=== PATIENT | female | born 1975 | race Caucasian/White ===

== ENCOUNTER 2021-07-28 08:22 | Inpatient (IN) | payer BC, SELFPAY ==
[2021-07-28] VITALS (63 sets, daily range): BP systolic 81–132; BP diastolic 53–94; PULSE 54–134; RESP 18–26; TEMP 36.8–37.4; O2SAT 65–100; BMI 29.4; BMI 28.8
--- NOTE | 2021-07-28 | XR_ITS ---
WS: [id number] Portable AP supine chest, 07/28/2021, 1252 hours Clinical Data: CL PLACEMENT Comparison: Portable chest, today, 1049 hours. Findings: A right subclavian catheter has been inserted and it ends in the superior vena cava. No pne umothorax is seen. The other tubes are in good position and unchanged. There is no change in the pulm onary opacities. XR/XR chest 1V portable [id number] Impression: Satisfactory placement of right subclavian catheter.
--- NOTE | 2021-07-28 08:55 | XR_ITS ---
WS: [id number] Portable AP upright chest, 07/28/2021 Clinical Data: dyspnea/cough Comparison: None. Findings: Diffuse patchy bilateral pulmonary opacities are present. The heart is enlarged. No nodules , masses or effusions are seen. Monitor leads are on the chest wall. XR/XR chest 1V portable [id number] Impression: 1. Diffuse patchy bilateral pulmonary opacities consistent with pneumonia. 2. Cardiomegaly.
--- NOTE | 2021-07-28 09:01 | ED_ITS ---
HPI - COVID General: Chief Complaint: COVID symptoms Stated Complaint: Fever, Cough, SOB Time Seen by Provider: 07/28/21 08:47 Triage information: Has fever, cough or shortness of breath . Exposure to COVID + person last 14 days History of Present Illness: HPI Narrative: 85-year-old female presents emergency room with acute shortness of breath on arrival she is 65% on room air. With nonrebreather she is in the mid 80s with any activity sitting up talking she desats to the low 80s. She states she is tested positive for Covid approximately 1 week ago has been getting progressively worse with nonproductive cough and increasing shortness of breath and some chest pressure. MD complaint: known COVID positive Prior covid testing: yes, results known (Per patient she tested positive at [facility]) Prior testing date: 07/21/21 COVID 19 common symptoms: positive fever(s), chills, cough, non-productive cough, dyspnea, fatigue, body aches, throat pain, nasal congestion, nausea and diarrhea COVID 19 other sytmptoms: positive requiring oxygen; negative chest pain Onset (ago): day(s) (8) Severity: severe Pertinent comorbid conditions: obesity Treatment prior to arrival: none COVID Results: No Data to Display Review of Systems Const: Reports: fever(s), chills, body aches and fatigue ENMT: Reports: throat pain and nasal congestion Card: Denies: chest pain, edema, dyspnea on exertion or orthopnea Resp: Reports: dyspnea and non-productive cough GI: Reports: nausea and diarrhea : Denies: flank pain, difficulty voiding, dysuria, urinary frequency or urinary urgency Skin/Breast: Denies: rash or pruritus PFSH ED PFSH: Medical History (Updated 07/28/21 @ 11:18 by Duglas Tabor MD) Hyperlipidemia Surgical History (Updated 07/28/21 @ 11:03 by Duglas Tabor MD) History of tubal ligation Family History (Updated 07/28/21 @ 11:04 by Duglas Tabor MD) Other CAD (coronary artery disease) Cancer Stroke Social History (Updated 07/28/21 @ 11:04 by Duglas Tabor MD) Smoking and tobacco status: never smoked Alcohol intake: current Alcohol intake frequency: few times a month Female Reproductive History: Date of last menstrual period: 07/28/21 Physical Exam Const: GENERAL APPEARANCE: cooperative ORIENTATION/CONSCIOUSNESS: Yes awake, Yes oriented to person, Yes oriented to place and Yes oriented to time HENMT: COMMON NORMALS: normocephalic, atraumatic and hearing grossly normal bilaterally HEAD & SCALP: normocephalic and atraumatic Resp: AUSCULTATION: wheezes Cardio: COMMON NORMALS: regular rhythm and No murmurs present (Cardio) RATE: tachycardic RHYTHM: regular rhythm GI: COMMON NORMALS: Soft to palpation and No hepatosplenomegaly present AUSCULTATION: Yes normoactive bowel sounds PALPATION: Yes Soft to palpation, No Tenderness to palpation present (GI), No Guarding due to palpation present (GI) and Yes No hepatosplenomegaly present Extremity: COMMON NORMALS: normal to inspection, no calf tenderness and no pedal edema Neuro: SENSORIUM/ORIENTATION: Yes oriented to person, Yes oriented to place and Yes oriented to time Skin: COMMON NORMALS: no rashes or lesions noted GENERAL SKIN EXAM: no rashes or lesions noted Procedures Central Line Placement Right SC: Time Out Performed: Yes Patient Placed on Monitor/Pulse Ox: Yes MD Prep: mask, gown and gloves Central Line Prep: Chlorhexidine scrub Local Anesthetic: lidocaine 1% Amount of anesthesia used (mL): 5 Ultrasound Used for Placement: Yes Central Line Lumen Inserted: triple Post Procedure: sutured in place, good blood return, all ports aspirated, flushed, capped and sterile dressing applied Post Procedure X-Ray: tip of catheter in good position and no pneumothorax seen Patient Tolerated Procedure: well Complications: catheter malposition Additional Comments: First attempt at the right subclavian no difficulty placing the catheter however on x-ray it was malposition were bridged across to the left subclavian. Catheter was retracted rotated and then advanced on the first attempt it went to the IJ on the second attempt under similar adjustments it went back across to the left subclavian. After several more attempts it was not able to advance adequately but still could withdraw blood. Large amount of the catheter was out and could not get the catheter positioned into the superior vena cava. The catheter was removed a second kit was obtained and the right subclavian was reaccessed assessed proximally 2 to 3 cm more medially. Was able to advance the catheter without difficulty on first x-ray the catheter is into the inferior vena cava it was withdrawn some and confirmed to be at the tip of the right atrium. It was then sutured into place using the available lock. A portion of the triple-lumen catheter remained extra dermal in order to keep the tip positioned properly. Was sutured into place without further difficulty all 3 ports would draw and flush without difficulty. Intubation Time out performed: Yes sedative: Etomidate Mg Given: 20 paralytic: Succinylcholine Mg Given: 90 ET Tube Size: 8.5 ET Tube Uncuffed: No Tube Secured Depth (cm): 24 Tube Secured Location: teeth Tube Placement Confirmation: visualized tube passing through cords, equal breath sounds bilaterally, no breath sounds over epigastrium and confirmation by capnometry Patient Tolerated Procedure: well Intubation Complications: none Additional Comments: Tube retracted 2 cm after chest x-ray which showed the tip right at the tia Course Vital Signs: Vital signs: Vital Signs Temperature 99.4 F 07/28/21 08:40 Pulse Rate 88 07/28/21 13:00 Respiratory Rate 20 H 07/28/21 13:00 Blood Pressure 93/61 07/28/21 13:00 Pulse Oximetry 95 07/28/21 13:00 MDM - COVID Lab Data: Labs: Lab Results 07/28/21 07/28/21 07/28/21 Range/Units 08:40 08:40 08:40 WBC 8.6 (4.0-10.0) 10^3/ uL RBC 4.49 (4.1-5.3) 10^6/u L Hgb 13.4 (11.5-15.3) g/dL Hct 41.3 (37.0-47.0) % MCV 92.0 (81-99) fl MCH 29.8 (28.0-34.0) pg MCHC 32.4 (30.0-36.0) g/dL RDW 14.4 (12.1-15.1) % Plt Count 405 H (130-400) 10^3/c mm MPV 11.2 H (7.4-10.4) fL Neut % (Auto) 87.1 % Lymph % (Auto) 6.9 % [facility] % (Auto) 4.1 % Eos % (Auto) 0.2 % Baso % (Auto) 0.1 % Neut # (Auto) 7.48 (1.8-7.7) 10^3/u L Lymph # (Auto) 0.6 L (0.8-4.8) 10^3/u L [facility] # (Auto) 0.4 (0.2-0.9) 10^3/u L Eos # (Auto) 0.0 (0.0-0.8) 10^3/u L Baso # (Auto) 0.0 (0.0-0.1) 10^3/u L Nucleated RBC % (a uto) 0 % Nucleated RBCs # 0.0 /100WBC D-Dimer 3.17 H (0-0.59) ug/mIFE U Specimen Type Sample Site ABG pH (7.35-7.45) ABG pCO2 (35-45) mmHg ABG pO2 (80.0-100.0) mmH g ABG HCO3 (22-26) mmol/L ABG Base Excess (-2.0-2.0) mmol/ L Akira Test Hematocrit (37-47) % O2 Delivery Device O2 Liters/Min % FiO2 % Machine Maintenance Repairer ID Sodium 138 (136-145) mmol/L Potassium 3.2 L (3.5-5.1) mmol/L Chloride 98 (98-107) mmol/L Carbon Dioxide 27 (22-29) mmol/L Anion Gap 16.2 (5-19) BUN 11 (6-20) mg/dL Creatinine 0.6 (0.5-0.9) mg/dL GFR Calculation 107.2 (90-130) mL/min Glucose 98 (65-115) mg/dL Calculated Osmolal ity 285 (285-295) mOsm/k g Lactic Acid (0.5-2.2) mmol/L Calcium 8.2 L (8.5-10.5) mg/dL Magnesium (1.7-2.3) mg/dL Total Bilirubin 0.8 (0.15-1.2) mg/dL AST 99 H (0-32) U/L ALT 201 H (0-33) U/L Alkaline Phosphata se 189 H (35-105) IU/L Creatine Kinase (26-192) U/L C-Reactive Protein 121.3 H (0.0-4.9) mg/L Total Protein 7.0 (6.6-8.7) g/dL Albumin 3.6 (3.5-5.2) g/dL Globulin 3.4 (1.3-4.6) g/dL Procalcitonin 0.10 (0-0.5) ng/mL 07/28/21 07/28/21 07/28/21 Range/Units 08:40 08:40 08:40 WBC (4.0-10.0) 10^3/ uL RBC (4.1-5.3) 10^6/u L Hgb (11.5-15.3) g/dL Hct (37.0-47.0) % MCV (81-99) fl MCH (28.0-34.0) pg MCHC (30.0-36.0) g/dL RDW (12.1-15.1) % Plt Count (130-400) 10^3/c mm MPV (7.4-10.4) fL Neut % (Auto) % Lymph % (Auto) % [facility] % (Auto) % Eos % (Auto) % Baso % (Auto) % Neut # (Auto) (1.8-7.7) 10^3/u L Lymph # (Auto) (0.8-4.8) 10^3/u L [facility] # (Auto) (0.2-0.9) 10^3/u L Eos # (Auto) (0.0-0.8) 10^3/u L Baso # (Auto) (0.0-0.1) 10^3/u L Nucleated RBC % (a uto) % Nucleated RBCs # /100WBC D-Dimer (0-0.59) ug/mIFE U Specimen Type Sample Site ABG pH (7.35-7.45) ABG pCO2 (35-45) mmHg ABG pO2 (80.0-100.0) mmH g ABG HCO3 (22-26) mmol/L ABG Base Excess (-2.0-2.0) mmol/ L Akira Test Hematocrit (37-47) % O2 Delivery Device O2 Liters/Min % FiO2 % Machine Maintenance Repairer ID Sodium (136-145) mmol/L Potassium (3.5-5.1) mmol/L Chloride (98-107) mmol/L Carbon Dioxide (22-29) mmol/L Anion Gap (5-19) BUN (6-20) mg/dL Creatinine (0.5-0.9) mg/dL GFR Calculation (90-130) mL/min Glucose (65-115) mg/dL Calculated Osmolal ity (285-295) mOsm/k g Lactic Acid 2.5 H (0.5-2.2) mmol/L Calcium (8.5-10.5) mg/dL Magnesium 2.2 (1.7-2.3) mg/dL Total Bilirubin (0.15-1.2) mg/dL AST (0-32) U/L ALT (0-33) U/L Alkaline Phosphata se (35-105) IU/L Creatine Kinase 27 (26-192) U/L C-Reactive Protein (0.0-4.9) mg/L Total Protein (6.6-8.7) g/dL Albumin (3.5-5.2) g/dL Globulin (1.3-4.6) g/dL Procalcitonin (0-0.5) ng/mL 07/28/21 Range/Units 08:56 WBC (4.0-10.0) 10^3/ uL RBC (4.1-5.3) 10^6/u L Hgb (11.5-15.3) g/dL Hct (37.0-47.0) % MCV (81-99) fl MCH (28.0-34.0) pg MCHC (30.0-36.0) g/dL RDW (12.1-15.1) % Plt Count (130-400) 10^3/c mm MPV (7.4-10.4) fL Neut % (Auto) % Lymph % (Auto) % [facility] % (Auto) % Eos % (Auto) % Baso % (Auto) % Neut # (Auto) (1.8-7.7) 10^3/u L Lymph # (Auto) (0.8-4.8) 10^3/u L [facility] # (Auto) (0.2-0.9) 10^3/u L Eos # (Auto) (0.0-0.8) 10^3/u L Baso # (Auto) (0.0-0.1) 10^3/u L Nucleated RBC % (a uto) % Nucleated RBCs # /100WBC D-Dimer (0-0.59) ug/mIFE U Specimen Type Arterial Sample Site Radial, left ABG pH 7.52 H (7.35-7.45) ABG pCO2 33.6 L (35-45) mmHg ABG pO2 49.8 L (80.0-100.0) mmH g ABG HCO3 27.2 H (22-26) mmol/L ABG Base Excess 4.5 H (-2.0-2.0) mmol/ L Akira Test Pos Hematocrit 41.1 (37-47) % O2 Delivery Device Nrb O2 Liters/Min 15.0 % FiO2 100.0 % Machine Maintenance Repairer ID Ed Sodium (136-145) mmol/L Potassium (3.5-5.1) mmol/L Chloride (98-107) mmol/L Carbon Dioxide (22-29) mmol/L Anion Gap (5-19) BUN (6-20) mg/dL Creatinine (0.5-0.9) mg/dL GFR Calculation (90-130) mL/min Glucose (65-115) mg/dL Calculated Osmolal ity (285-295) mOsm/k g Lactic Acid (0.5-2.2) mmol/L Calcium (8.5-10.5) mg/dL Magnesium (1.7-2.3) mg/dL Total Bilirubin (0.15-1.2) mg/dL AST (0-32) U/L ALT (0-33) U/L Alkaline Phosphata se (35-105) IU/L Creatine Kinase (26-192) U/L C-Reactive Protein (0.0-4.9) mg/L Total Protein (6.6-8.7) g/dL Albumin (3.5-5.2) g/dL Globulin (1.3-4.6) g/dL Procalcitonin (0-0.5) ng/mL COVID Results: No Data to Display Discharge Plan Discharge Admit Provider: Duglas Tabor Coding Level of Care Code ED [employer] for [facility] Fwd Exam Detailed
[2021-07-28 09:06] LABS: ABG PCO2 33.6 mmHg (35-45); ABG PH Result 7.52 (7.35-7.45); Arterial Blood Gas Hematocrit 41.1 % (37-47); Base Excess ABG 4.5 mmol/L (-2.0-2.0); Blood Gas Allen Test Pos; Blood Gas Sample Type Arterial; HCO3 ABG 27.2 mmol/L (22-26); PO2 ABG 49.8 mmHg (80.0-100.0)
[2021-07-28 09:07] LABS: Blood Gas Operator Identificat ED; Blood Gas Sample Site Radial, left; Oxygen Device NRB
[2021-07-28 09:25] LABS: Basophils % 0.1 %; Eosinophils % 0.2 %; Hematocrit 41.3 % (37.0-47.0); Hemoglobin 13.4 g/dL (11.5-15.3); Lymphocytes # 0.6 10^3/uL (0.8-4.8); Lymphocytes % 6.9 %; Mean Corpuscular HGB Conc 32.4 g/dL (30.0-36.0); Mean Corpuscular Hemoglobin 29.8 pg (28.0-34.0); Mean Platelet Volume 11.2 fL (7.4-10.4); Monocytes # 0.4 10^3/uL (0.2-0.9); Monocytes % 4.1 %; Neutrophils # 7.48 10^3/uL (1.8-7.7); Neutrophils % 87.1 %; Nucleated Red Blood Cells % 0 %; Platelet Count 405 10^3/cmm (130-400); Red Blood Count 4.49 10^6/uL (4.1-5.3); Red Cell Distribution Width 14.4 % (12.1-15.1); White Blood Count 8.6 10^3/uL (4.0-10.0)
[2021-07-28 09:29] LABS: D Dimer 3.17 ug/mIFEU (0-0.59); Lactic Sepsis W/Reflex 2.5 mmol/L (0.5-2.2)
--- NOTE | 2021-07-28 09:31 | PC.PHAR ---
pt states she takes care of her own medications-pt states she dced her meds in dec 2020- ext med history shows fluvoxamine 100mg take 50mg bid,levothyroxine 75mcg po daily,hctz 25mg daily,vitamin d 50,000 units q7d,and lipitor 20mg daily last filled from 12/07/20-11/28/20 30d/s-pt states she finished the zpac and dexamethasone on 07/27/21
[2021-07-28] MEDS: dexamethasone 10 mg/mL INJ 6 MG IVP (09:33)
[2021-07-28] MEDS: remdesivir 200 MG in sodium chloride 0.9% (100 ml) 60 ML 100 MG IV (09:34)
[2021-07-28 09:48] LABS: Albumin Level 3.6 g/dL (3.5-5.2); Anion Gap 16.2 (5-19); Blood Urea Nitrogen 11 mg/dL (6-20); Carbon Dioxide 27 mmol/L (22-29); Chloride 98 mmol/L (98-107); Globulin 3.4 g/dL (1.3-4.6); Glomerular Filtration Rate 107.2 mL/min (90-130); Glucose 98 mg/dL (65-115); Osmolality Calculated 285 mOsm/kg (285-295); Sodium 138 mmol/L (136-145); Total Bilirubin 0.8 mg/dL (0.15-1.2)
[2021-07-28 10:01] LABS: Alanine Aminotransferase 201 U/L (0-33); Aspartate Amino Transferase 99 U/L (0-32); C Reactive Protein 121.3 mg/L (0.0-4.9); Calcium 8.2 mg/dL (8.5-10.5); Potassium 3.2 mmol/L (3.5-5.1)
[2021-07-28 10:02] LABS: Alkaline Phosphatase 189 IU/L (35-105)
--- NOTE | 2021-07-28 10:23 | CT_ITS ---
WS: [id number] CTA OF THE CHEST WITH PULMONARY EMBOLISM PROTOCOL TECHNIQUE: High-resolution contrast enhanced CTA of the chest with coronal and sagittal reformatted i mages with pulmonary embolism protocol. MIP images are also reviewed. CLINICAL INFORMATION: covid COMPARISON: None. DLP: 529.[address] scans at [facility] use at least one of these dose optimization techniques: automated e xposure control; mA and/or kV adjustment per patient size (includes targeted exams where dose is matc hed to clinical indication); or iterative reconstruction. FINDINGS: Proximal main pulmonary arteries are normal. Normal segmental and subsegmental pulmonary arteries. No filling defects to indicate pulmonary embolus. Endotracheal tube with tip above the tia. Enteric tube with tip in the stomach. Postoperative bilateral breast implants. Tiny pericardial effusion/pericardial thickening. Diffuse bilateral hazy groundglass pulmonary infilt rates compatible with COVID 19 pneumonia. Partial consolidation in the posterior lungs. Normal calibe r thoracic aorta. Adrenal glands are normal. CT/CT angio chest PE protcl [id number] IMPRESSION: 1. Proximal main pulmonary arteries are normal. No evidence of pulmonary embol us. 2. Diffuse bilateral hazy groundglass infiltrates compatible with COVID 19 pne umonia. Partial consolidation in the lungs posteriorly. 3. Reactive mediastinal, hilar and peribronchial lymph nodes. 4. Tiny pericardial effusion/pericardial thickening. 5. Endotracheal tube with tip above the tia. Enteric tube with tip in the s tomach.
[2021-07-28] MEDS: succinylcholine 20 mg/mL SDV 10mL 90 MG IVP (10:32)
--- NOTE | 2021-07-28 10:41 | XR_ITS ---
WS: [id number] Portable AP supine chest, 07/28/2021, 1049 hours. Clinical Data: dyspnea/cough Comparison: Portable chest, 07/28/2021, 0857 hours. Findings: An endotracheal tube and nasogastric tube have been inserted and they are in good position. The bilat eral pulmonary opacities remain the same. The heart is enlarged. No pneumothorax is noted. Monitor le ads on the chest wall XR/XR chest 1V portable [id number] Impression: Satisfactory insertion of endotracheal tube and nasogastric tube.
[2021-07-28] MEDS: vecuronium 10 mg SDV IVP (10:42)
--- NOTE | 2021-07-28 10:48 | P.HP_ITS ---
Providers/Chief Complaint Admitting Physician: Duglas Tabor MD Chief Complaint: Fever, Cough, SOB History of Present Illness Zulma Rodriguez is a 45 year old female who presented to the hospital with history of severe shortness of breath. She reports she had a positive Covid test at [place] on July 21. Please see history obtained by the ER physician. Patient was being intubated as I saw her and further history could not be obtained. It appears she was on dexamethasone, and a azithromycin prior to coming to the hospital. From my understanding she has had fever and chills as well. Review of Systems General: Reports: ROS unobtainable due to mental status (Intubated, sedated) Medications/Allergies Home Medications Medication Instructions Recorded Confirmed Last Taken Type Vitamin C 1 tab PO DAILY 07/28/21 07/28/21 Unknown History acetaminophen [Tylenol Extra 1,000 mg PO Q4H PRN 07/28/21 07/28/21 Unknown History Strength] azithromycin See Rx Instructions .ROUTE .COMPLEX 07/28/21 07/28/21 07/27/21 History finished 07/27/21 dexamethasone 6 mg PO DAILY 07/28/21 07/28/21 07/27/21 History finished 07/27/21 zinc 1 cap PO DAILY 07/28/21 07/28/21 Unknown History Allergies Allergy/AdvReac Type Severity Reaction Status Date / Time ampicillin Allergy Unknown Verified 07/28/21 09:28 morphine Allergy Unknown Verified 07/28/21 09:27 Penicillins Allergy Unknown Verified 07/28/21 09:27 Sulfa (Sulfonamide Allergy Unknown Verified 07/28/21 09:27 Antibiotics) PFSH Acute PFSH: Medical History (Updated 07/28/21 @ 11:18 by Duglas Tabor MD) Hyperlipidemia Surgical History (Updated 07/28/21 @ 11:03 by Duglas Tabor MD) History of tubal ligation Family History (Updated 07/28/21 @ 11:04 by Duglas Tabor MD) Other CAD (coronary artery disease) Cancer Stroke Social History (Updated 07/28/21 @ 11:04 by Duglas Tabor MD) Smoking and tobacco status: never smoked Alcohol intake: current Alcohol intake frequency: few times a month Female Reproductive History: Date of last menstrual period: 07/28/21 Supplemental PFSH Information: History of breast augmentation, tummy tuck Vitals/I&O/Wt Last Vital Signs Temp 99.4 F 07/28/21 08:40 Pulse 122 H 07/28/21 10:25 Resp 22 H 07/28/21 10:25 BP 115/85 07/28/21 10:25 Pulse Ox 91 07/28/21 10:25 Weight last 48 hrs Weight 80.286 kg Physical Exam Narrative: EXAM NARRATIVE: General exam is an intubated female, sedated HEENT: Pupils round. Endotracheal tube and nasogastric tube noted. Neck supple no lymphadenopathy or thyromegaly Cardiovascular tachycardic Lungs coarse breath sounds bilaterally Abdomen is soft, positive bowel sounds. No obvious organomegaly exam demonstrates [place] Extremities no cyanosis clubbing or edema Skin no rash Neurologic: Sedated Data : 07/28/21 08:40 07/28/21 08:40 Other data: Dimer elevated at 3.17 ABG demonstrates a pH of 7.5, PCO2 of 34, PO2 of 50 on 100% FiO2 by n onrebreather Lactic acid elevated at 2.5 AST elevated 99, ALT 201, bilirubin normal, alk phos 189, CRP 121, procalcitonin 0.1 Chest x-ray bilateral infiltrates consistent with Covid CTA has been ordered. A&P Assessment and plan (1) Acute respiratory failure: Intubated in the emergency department secondary to failure to improve on high flow oxygen. I believe BiPAP was tried as well. Currently mechanical ventilation with 8 of PEEP, FiO2 of 100%, tidal volume of 450. Patient saturation is currently 94% and vital signs stable. Sedation with propofol, fentanyl, Versed If oxygenation worsens, consider paralyzation and proning Wean ventilator as tolerated Pulmonary critical care consultation Respiratory failure appears to be secondary to COVID-19 pneumonia without concomitant bacterial illness. Procalcitonin is negative at this time. Secondary to elevated dimer, CTA is pending and these findings will be addressed as well. Status: Acute (2) Pneumonia due to COVID-19 virus: Initiate remdesivir Continue dexamethasone Consideration of Actemra if no evidence of bacterial infection. Will await CTA prior to ordering Pulmonary toilet See above notation under acute respiratory failure. If any hypotension develops initiate norepinephrine Try to avoid overhydration Status: Acute (3) Hypokalemia: Supplement with IV potassium Check magnesium Status: Acute (4) Elevated d-dimer: Await CTA of chest already ordered Status: Acute (5) Transaminitis: Likely secondary to Covid Check CK No further imaging regarding this at this time unless it worsens significantly. Status: Acute Additional A&P Information History of hyperlipidemia Full code Lovenox for DVT prophylaxis Attestations Medical Necessity Statement*: Will need greater than 2 midnight stay secondary to severe COVID-19 pneumonia requiring mechanical ventilation. Critical Care Time: Critical Care Time (min): 58 Other Attestations: The high probability of a clinically significant, sudden or life threatening deterioration of the patient's [pulmonary] system(s) required my full and direct attention, intervention and personal management. The critical care time is as shown. This time is in addition to time spent performing any reported procedures but includes the following: [x] Data and vital sign review and interpretation [x] Patient assessment, examination and intervention [x] Documentation [x] Medication orders and management Coding Level of Care Code Acute Maintenance Mechanic for [facility] Fwd Diagnoses Acute respiratory failure J96.00 Pneumonia due to COVID-19 virus U07.1; J12.82 Hypokalemia E87.6 Elevated d-dimer R79.89 Transaminitis R74.01
--- NOTE | 2021-07-28 10:51 | PC.NURSE ---
Intubation note: time out completed with ER physician, hospitalist physician, RT, and RN *2. Pt given appropriate medications, and intubated at 1034. Pt intubated with ETT 24cm at the teeth. Pt tolerated procedure well.
[2021-07-28 10:57] LABS: Reflex Lactate Order REFLEX LACTIC ORDERD
--- NOTE | 2021-07-28 11:06 | ECG_ITS ---
[facility] Test Date: 2021-07-28 Pat Name: Zulma Rodriguez Department: Room: ICU12 Gender: Female Marketing Operations Intern: : 1975 Requested By: Duglas Mohan Order Number: [id number] Dennise MD: Sylvester Hinds M.D. Measurements Intervals [place] Rate: 119 P: 45 NE: 145 QRS: 10 QRSD: 79 T: 58 QT: 339 QTc: 478 Interpretive Statements SINUS TACHYCARDIA POSSIBLE LEFT ATRIAL ENLARGEMENT [-0.1mV P-WAVE IN V1/V2] NONSPECIFIC ST & T-WAVE ABNORMALITY ABNORMAL RHYTHM ECG No previous ECG available for comparison Electronically Signed On 07-28-2021 20:38:25 CDT by Sylvester Hinds M.D. [id number]
[2021-07-28] MEDS: propofol 1,000 MG/100 ML INJ 2.41 MG IV (11:26)
[2021-07-28 11:27] LABS: Magnesium 2.2 mg/dL (1.7-2.3)
[2021-07-28 11:44] LABS: Creatine Phosphokinase 27 U/L (26-192)
[2021-07-28 11:59] LABS: Bilirubin Urine 1+ (Negative); Blood Urine Neg (Negative); Glucose Urine UA Norm (Normal); Ketones Urine Negative (Negative); Leukocyte Esterase Urine Negative (Negative); Nitrate Urine Negative (Negative); Protein Urine 1+ (Negative); Urine Appearance SL Hazy (CLEAR); Urine Color Amber (Yellow); Urobilinogen Urine 4 mg/dL (Negative); pH Urine 6.5 (5-7)
[2021-07-28 12:00] LABS: Add Urine Culture? No; Bacteria Urine 1+ /hpf; Mucus Urine 2+ /hpf; Squamous Epithelial Cell Urine 0-4 /hpf (0-5); Transitional Epi Cells Urine 0-4 /hpf
[2021-07-28] MEDS: sodium chloride 0.9% 1,000 ML 999 ML IV (12:35)
[2021-07-28] MEDS: iohexol 350 mg/mL 100 mL Btl IV (14:07)
--- NOTE | 2021-07-28 14:41 | PC.NURSE ---
applied soft restrains to upper extremities at 1230 per MD v/o, patient tolerated well.
[2021-07-28] MEDS: ipratropium-albuterol 3 mL Neb INHALATION ×2 (15:30→20:10)
[2021-07-28] MEDS: lidocaine 1% 5 ML in potassium chloride premix 100 ML 25 ML IV (15:46)
[2021-07-28 15:47] LABS: ABG PH Result 7.51 (7.35-7.45); Arterial Blood Gas Hematocrit 36.5 % (37-47); Base Excess ABG 3.2 mmol/L (-2.0-2.0); Blood Gas Allen Test Pos; Blood Gas Sample Type Arterial; PO2 ABG 65.8 mmHg (80.0-100.0)
[2021-07-28] MEDS: enoxaparin 40 mg/0.4 mL Syringe SUBCUT (15:47)
[2021-07-28] MEDS: famotidine 20 mg/2 mL INJ IVP (15:47)
[2021-07-28 15:48] LABS: Blood Gas Operator Identificat ED; Blood Gas Sample Site Radial, right; Blood Gas Tidal Volume 0.45; Oxygen Device VENT
[2021-07-28] MEDS: propofol 1,000 MG/100 ML INJ 14.45 MG IV (16:02)
[2021-07-28] MEDS: cisatracurium 100 MG in sodium chloride 0.9% 50 ML IV (16:29)
[2021-07-28] MEDS: levofloxacin-dextrose 5 % 750 MG/150 ML PREMIX 100 MG IV (18:35)
--- NOTE | 2021-07-28 19:03 | PM.ACPR ---
Procedure/Consent Consent: Consent for Procedure: Emergency procedure Procedure Narrative: Name of the procedure: Right radial ultrasound-guided arterial catheter placement. Medications: Fentanyl, Versed and propofol drip. Description of the procedure: The site was prepared using sterile technique. The right radial artery was identified under ultrasound guidance from pulsatility. Under ultrasound guidance the introducer needle was advanced till flash back was noted. Using Seldinger technique the left radial arterial line was inserted. The catheter was secured with 2-0 silk suture and Tegaderm. Complications: None.
--- NOTE | 2021-07-28 19:05 | PM.CONSULT ---
Providers/Reason For Consult Consulting Physician/Specialty*: Pulmonary and critical care medicine Reason for Consult*: Severe COVID-19 Attending Physician: Duglas Tabor MD History of Present Illness History of Present Illness Zulma Rodriguez is a 45 year old female with severe shortness of breath and hypoxia. The history was obtained from chart review. It appears that the patient had tested positive for COVID-19 on July 21 in [place]. She was receiving dexamethasone as outpatient. In the emergency department today the patient was saturating 65% on room air. With nonrebreather she was saturating in low 80s. Eventually the patient got intubated. I evaluated the patient in the ICU. The patient was intubated and sedated. She was on 80% oxygen with a PEEP of 8 and a tidal volume of 450 cc. Her arterial blood gas revealed a pH of 7.51, PCO2 of 33 and PO2 of 66 on 80% oxygen. CT angiogram was negative for pulmonary embolism. The patient has diffuse bilateral groundglass opacity with peripheral predominance. No significant pleural effusion. Bedside ultrasound revealed bilateral diffuse B-lines. The IVC is within normal size. The patient has elevated inflammatory markers. Review of Systems Narrative: Unable to obtain Meds/Allergies Home Medications and Allergies Home Medications Medication Instructions Recorded Confirmed Last Taken Type Vitamin C 1 tab PO DAILY 07/28/21 07/28/21 Unknown History acetaminophen [Tylenol Extra 1,000 mg PO Q4H PRN 07/28/21 07/28/21 Unknown History Strength] azithromycin See Rx Instructions .ROUTE .COMPLEX 07/28/21 07/28/21 07/27/21 History finished 07/27/21 dexamethasone 6 mg PO DAILY 07/28/21 07/28/21 07/27/21 History finished 07/27/21 zinc 1 cap PO DAILY 07/28/21 07/28/21 Unknown History Allergies Allergy/AdvReac Type Severity Reaction Status Date / Time ampicillin Allergy Unknown Verified 07/28/21 09:28 morphine Allergy Unknown Verified 07/28/21 09:27 Penicillins Allergy Unknown Verified 07/28/21 09:27 Sulfa (Sulfonamide Allergy Unknown Verified 07/28/21 09:27 Antibiotics) Current Medications Current Medications Generic Name Dose Route Start Last Admin Trade Name Freq PRN Reason Stop Dose Admin Albuterol/Ipratropium 3 ml 07/28/21 14:39 07/28/21 15:30 Ipratropium-Albuterol 3 Ml Neb INHALATION 3 ml Q6H CANDI Administration Enoxaparin Sodium 40 mg 07/28/21 14:39 07/28/21 15:47 Enoxaparin 40 Mg/0.4 Ml Syringe SUBCUT 40 mg Q24H CANDI Administration Famotidine 20 mg 07/28/21 14:39 07/28/21 15:47 Famotidine 20 Mg/2 Ml Inj IVP 20 mg Q12H CANDI Administration Propofol 1,000 mg in 100 mls @ 0 mls/hr 07/28/21 11:00 07/28/21 16:54 Diprivan IV 50 mcg/kg/min .Q0M CANDI 24.09 mls/hr Titration Protocol Per Protocol Norepinephrine Bitartrate 4 mg 254 mls @ 0 mls/hr 07/28/21 14:39 07/28/21 16:50 / Dextrose IV 4 mcg/min .Q0M CANDI 15.24 mls/hr Titration Protocol Per Protocol Cisatracurium Besylate 100 mg/ 100 mls @ 0 mls/hr 07/28/21 16:00 07/28/21 16:29 Sodium Chloride IV 0.3 mcg/kg/min .Q0M CANDI 1.41 mls/hr Administration Protocol Per Protocol Levofloxacin/Dextrose 750 mg in 150 mls @ 100 mls/hr 07/28/21 18:00 07/28/21 18:35 Levaquin-D5w IV 100 mls/hr Q24H CANDI Administration Protocol PFSH Acute PFSH: Medical History Hyperlipidemia Surgical History History of tubal ligation Family History Other CAD (coronary artery disease) Cancer Stroke Social History Smoking and tobacco status: never smoked Alcohol intake: current Alcohol intake frequency: few times a month Female Reproductive History: Date of last menstrual period: 07/28/21 Vitals/I&O/Wt Last Vital Signs Temp 98.2 F 07/28/21 14:30 Pulse 64 07/28/21 18:15 Resp 20 H 07/28/21 18:15 BP 114/78 07/28/21 18:15 Pulse Ox 95 07/28/21 18:15 07/28/21 07/28/21 07/28/21 06:59 14:59 22:59 Intake Total 30.983 / 30.983 71.015 / 101.998 Output Total 300 / 300 Balance 30.983 / 30.983 -228.985 / -198.002 Weight last 48 hrs Weight 173 lb Weight 177 lb Physical Exam Narrative: EXAM NARRATIVE: General: The patient is intubated and sedated Neck: No JVD Respiratory: Auscultation: Coarse breath sound bilaterally, no wheezing or rhonchi Cardiovascular: Regular rate and rhythm, S1-S2 present, no murmur, no peripheral edema. Abdomen: Soft, nondistended, positive bowel sound Skin: No rash Neuro: The patient is sedated Urinary Catheter Management^: Alcantara: Cath Placed During This Visit: yes Reason for Continuing Indwelling Catheter: Accurate Measurement of Urinary Output in Critically Ill Patients Urinary Catheter Time of Insertion: 11:12 Data Micro: Micro: Microbiology 07/28/21 10:54 Gram Stain - Final Sputum - Endotrac heal Tube Aspirate 07/28/21 13:00 Blood Culture - Pr eliminary Blood SPECIMEN COLLEC HUSSAIN Other Data: Attestation for Other Data: I personally reviewed and interpreted the following: Other data: I have reviewed the patient's laboratory for microbiology cardiology data. Please see the HPI for detail A&P Assessment and plan (1) ARDS (adult respiratory distress syndrome): This is a 45-year-old lady with ARDS secondary to SARS-CoV-2 pneumonia. Her PF ratio is about 80. Currently she is on 80% oxygen. The patient will be a candidate for prone positioning. We will continue with low tidal volume ventilation. She will be paralyzed and proned for 18 hours. Status: Acute (2) Pneumonia due to COVID-19 virus: The patient is receiving remdesivir, dexamethasone. She is a candidate for Tocilizumab. We will give her empiric Levaquin for the time being. Status: Acute Coding Level of Care Code Acute Marketing Support Assistant for [facility] Diagnoses ARDS (adult respiratory distress syndrome) J80 Pneumonia due to COVID-19 virus U07.1; J12.82 Time Spent (min) 37
[2021-07-28] MEDS: propofol 1,000 MG/100 ML INJ 24.09 MG IV ×2 (19:59→23:55)
[2021-07-29] VITALS (63 sets, daily range): BP systolic 88–126; BP diastolic 53–93; PULSE 53–116; RESP 20–23; TEMP 25.5–36.6; O2SAT 89–99
--- NOTE | 2021-07-29 01:46 | PC.NURSE ---
Addendum entered by Jean Fernandez RN 07/29/21 05:38: At beginning of shift found Fentanyl running at 200 versed running at 6 Original Note: Dr. Mead approved increasing max of Fentanyl to 200 and Versed to 6
[2021-07-29] MEDS: famotidine 20 mg/2 mL INJ IVP ×2 (02:00→15:57)
[2021-07-29] MEDS: ipratropium-albuterol 3 mL Neb INHALATION ×4 (02:57→20:20)
[2021-07-29 03:44] LABS: ABG PCO2 28.9 mmHg (35-45); ABG PH Result 7.45 (7.35-7.45); Arterial Blood Gas Hematocrit 23.1 % (37-47); Base Excess ABG -3.7 mmol/L (-2.0-2.0); Blood Gas Sample Type Arterial; Blood Gas Tidal Volume 0.45; HCO3 ABG 19.9 mmol/L (22-26); Oxygen Device VENT
[2021-07-29] MEDS: propofol 1,000 MG/100 ML INJ 24.09 MG IV ×5 (03:49→21:00)
[2021-07-29 03:55] LABS: Hemoglobin 10.7 g/dL (11.5-15.3); Lymphocytes # 0.4 10^3/uL (0.8-4.8); Lymphocytes % 13.4 %; Mean Corpuscular HGB Conc 32.4 g/dL (30.0-36.0); Mean Corpuscular Hemoglobin 29.2 pg (28.0-34.0); Mean Corpuscular Volume 90.2 fl (81-99); Monocytes # 0.2 10^3/uL (0.2-0.9); Monocytes % 4.7 %; Neutrophils # 2.54 10^3/uL (1.8-7.7); Neutrophils % 79.4 %; Nucleated Red Blood Cells % 0 %; Platelet Count 280 10^3/cmm (130-400); Red Blood Count 3.66 10^6/uL (4.1-5.3); Red Cell Distribution Width 14.2 % (12.1-15.1); White Blood Count 3.2 10^3/uL (4.0-10.0)
[2021-07-29 04:32] LABS: Alanine Aminotransferase 127 U/L (0-33); Albumin Level 2.8 g/dL (3.5-5.2); Alkaline Phosphatase 153 IU/L (35-105); Anion Gap 18.1 (5-19); Aspartate Amino Transferase 38 U/L (0-32); Blood Urea Nitrogen 8 mg/dL (6-20); Calcium 7.7 mg/dL (8.5-10.5); Carbon Dioxide 21 mmol/L (22-29); Chloride 104 mmol/L (98-107); Globulin 3.3 g/dL (1.3-4.6); Glomerular Filtration Rate 238.5 mL/min (90-130); Glucose 108 mg/dL (65-115); Magnesium 2.1 mg/dL (1.7-2.3); Osmolality Calculated 289 mOsm/kg (285-295); Potassium 3.1 mmol/L (3.5-5.1); Sodium 140 mmol/L (136-145); Total Bilirubin 0.6 mg/dL (0.15-1.2); Total Protein 6.1 g/dL (6.6-8.7)
[2021-07-29] MEDS: remdesivir 100 MG in sodium chloride 0.9% (100 ml) 100 ML IV (05:21)
--- NOTE | 2021-07-29 05:39 | PC.NURSE ---
Shift Note Frequent safety and comfort rounds continue. Orders and/or nursing care completed as indicated. Patient monitored for response to intervention and treatment(s). Education provided includes[vent compliance]. Will continue to monitor. Able to titrate fentanyl down from 200 and titrate off levophed per protocol, tolerated vent throughout shift, periods of melinda cardia during night remained non symptomatic, uneventful night
--- NOTE | 2021-07-29 09:30 | PC.NURSE ---
Rn Support Services called , Jose Roberto to update him. All questions answered and staff was able to get information for admission assessment.
[2021-07-29] MEDS: dexamethasone 10 mg/mL INJ 6 MG IVP (09:50)
--- NOTE | 2021-07-29 10:17 | PC.NURSE ---
BIS [phone]
--- NOTE | 2021-07-29 11:04 | PC.NURSE ---
BIS 45
--- NOTE | 2021-07-29 12:12 | PC.NURSE ---
Pt was supined. DR. Mott and Robert state to keep pt on paralytic and reprone her at 1800 today.
--- NOTE | 2021-07-29 12:17 | PM.PN ---
Subjective Subjective: Interval history: The patient was seen and examined. She was prone for the first session yesterday. This morning she is supine. The patient was on 60% oxygen when she was prone. Currently she is on 70% oxygen and saturating in low 90s. Medications: Reviewed: Yes Vitals/I&O/Wt Last Vital Signs Temp 97.9 F 07/29/21 11:00 Pulse 74 07/29/21 12:00 Resp 20 H 07/29/21 11:47 BP 88/62 07/29/21 12:00 Pulse Ox 91 07/29/21 12:00 07/28/21 07/29/21 07/29/21 22:59 06:59 14:59 Intake Total 145.292 / 176.275 899.526 / 1075.801 203.917 / 203.917 Output Total 300 / 300 550 / 850 Balance -154.708 / -123.725 349.526 / 225.801 203.917 / 203.917 Weight last 48 hrs Weight 170 lb Weight 173 lb Weight 177 lb Physical Exam Narrative: EXAM NARRATIVE: General: The patient is intubated, paralyzed and sedated Neck: No JVD Respiratory: Auscultation: Coarse breath sound bilaterally, no wheezing or rhonchi Cardiovascular: Regular rate and rhythm, S1-S2 present, no murmur, no peripheral edema. Abdomen: Soft, nondistended, positive bowel sound Skin: No rash Neuro: The patient is sedated Urinary Catheter Management^: Alcantara: Cath Placed During This Visit: yes Reason for Continuing Indwelling Catheter: Accurate Measurement of Urinary Output in Critically Ill Patients Urinary Catheter Time of Insertion: 11:12 Data : 07/29/21 03:35 07/29/21 03:35 Micro: Microbiology 07/28/21 18:00 MRSA Culture - Final Nose 07/28/21 18:00 Bacterial Antigens - Final Urine,Voided 07/29/21 00:25 Blood Culture - Preliminary Blood SPECIMEN COLLECTED 07/28/21 10:54 Gram Stain - Final Sputum - Endotracheal Tube Aspirate 07/28/21 13:00 Blood Culture - Preliminary Blood SPECIMEN COLLECTED Attestation for Other Data: I personally reviewed and interpreted the following: Other data: I have reviewed the patient's laboratory, [place] and radiologic data A&P Assessment and plan (1) ARDS (adult respiratory distress syndrome): This is a 45-year-old lady with ARDS secondary to SARS-CoV-2 pneumonia. Her PF ratio improved significantly after prone positioning. Once she was made supine, there had been some increase in the FiO2. We will continue the paralysis for now and the patient will be proned again today. Reduce the tidal volume further the patient is hypercapnic. Status: Acute (2) Pneumonia due to COVID-19 virus: The patient is receiving remdesivir, dexamethasone. She received Tocilizumab on July 28. The patient is currently covered with Levaquin. There is no evidence of a secondary bacterial infection at this time. Status: Acute Attestations Medical Necessity Statement*: Will defer to the primary team Coding Level of Care Code Acute Cheese Cutter for [facility] Diagnoses ARDS (adult respiratory distress syndrome) J80 Pneumonia due to COVID-19 virus U07.1; J12.82 Time Spent (min) 33
[2021-07-29 13:17] LABS: ABG PCO2 35.5 mmHg (35-45); ABG PH Result 7.47 (7.35-7.45); Alveolar-Arterial Oxygen Gradi 30.9 mmHg (5-10); Arterial Blood Gas Hematocrit 42.6 % (37-47); Base Excess ABG 2.2 mmol/L (-2.0-2.0); Blood Gas Operator Identificat CAK; Blood Gas Sample Site ARTLINE; Blood Gas Sample Type Arterial; Carboxyhemoglobin 0.6 %THgb (0.4-20.1); HCO3 ABG 25.7 mmol/L (22-26); HGB O2 Sat 95.4 % (95-100); Ionized Calcium Level - ABG 1.1 mmol/L (1.1-1.4); Methemoglobin 0.1 % (0.4-1.5); Oxygen Device VENT; Oxygen Saturation ABG 96.1; PO2 ABG 74.7 mmHg (80.0-100.0); Potassium Level - ABG 3.6 mmol/L (3.5-5.0); Total Hemoglobin 13.9 g/dL (12-16)
[2021-07-29 13:53] LABS: Blood Gas Sample Site ARTERY
[2021-07-29] MEDS: enoxaparin 40 mg/0.4 mL Syringe SUBCUT (15:57)
--- NOTE | 2021-07-29 17:55 | PM.PN ---
Subjective Subjective: Interval history: Patient responsive to full session of proning FiO2 decreased to 50% however FiO2 requirement increased as soon as she was turned over to supine position Labs reviewed Positive fluid balance Afebrile Bradycardia noted which is common with remdesivir adequate maps Vitals/I&O/Wt Last Vital Signs Temp 78 F L 07/29/21 14:00 Pulse 69 07/29/21 14:15 Resp 20 H 07/29/21 16:05 BP 98/53 07/29/21 14:00 Pulse Ox 92 07/29/21 16:05 07/29/21 07/29/21 07/29/21 06:59 14:59 22:59 Intake Total 899.526 / 1888.349 5941.917 / 1403.917 100 / 1503.917 Output Total 550 / 850 Balance 349.526 / 075.067 8765.917 / 1403.917 100 / 1503.917 Weight last 48 hrs Weight 77.111 kg Weight 78.471 kg Weight 80.286 kg Physical Exam Narrative: EXAM NARRATIVE: young female who is finishing her fourth cycle of proning Bilateral assisted breath sounds without rhonchi or crepitations FiO2 50% during proning which was increased later on Neuro exam limited as she is prone Could not hear her bowel sounds Urinary catheter draining concentrated color urine Urinary Catheter Management^: Alcantara: Cath Placed During This Visit: yes Reason for Continuing Indwelling Catheter: Accurate Measurement of Urinary Output in Critically Ill Patients Urinary Catheter Time of Insertion: 11:12 Data : 07/29/21 03:35 07/29/21 03:35 Micro: Microbiology 07/28/21 13:00 Blood Culture - Preliminary Blood NEGATIVE TO DATE 07/28/21 10:54 Gram Stain - Final Sputum - Endotracheal Tube Aspirate Sputum Culture - Preliminary 07/28/21 18:00 MRSA Culture - Final Nose 07/28/21 18:00 Bacterial Antigens - Final Urine,Voided 07/29/21 00:25 Blood Culture - Preliminary Blood SPECIMEN COLLECTED A&P Assessment and plan (1) ARDS (adult respiratory distress syndrome): Status: Acute (2) Hypokalemia: Status: Acute (3) Pneumonia due to COVID-19 virus: Status: Acute (4) Acute respiratory failure: Status: Acute (5) Elevated d-dimer: Status: Acute Additional A&P Information ARDS related to COVID-19 Patient is responsive to proning During proning pa.o. 229 however in supine PaO2 74 Finish full cycle, second cycle of proning to be started today continue paralytics We will plan to decrease sedation once she is supine and start tube feeding at that time She is in positive balance we will give her 20 mg of IV Lasix Will add zinc and multivitamins Hypokalemia: Repleted High D-dimer: CTA rule out PE multiple peribronchial lymphadenopathy Tiny pericardial effusion Full code Start tube feeding during supine sessions DVT prophylaxis Lovenox Attestations Medical Necessity Statement*: Continue medical management Time Spent in Patient Care: 16 - 35 minutes Coding Level of Care Code Acute Process Development Associate for [facility] Fwd Diagnoses ARDS (adult respiratory distress syndrome) J80 Hypokalemia E87.6 Pneumonia due to COVID-19 virus U07.1; J12.82 Acute respiratory failure J96.00 Elevated d-dimer R79.89
[2021-07-29] MEDS: potassium chloride premix 100 ML 25 MEQ IV (18:38)
[2021-07-29] MEDS: FUROsemide 10 mg/mL SDV 2mL 20 MG IVP (18:38)
[2021-07-29] MEDS: levofloxacin-dextrose 5 % 750 MG/150 ML PREMIX 150 MG IV (18:38)
[2021-07-29 20:39] LABS: Glucose Point of Care 133 mg/dL (70-110)
--- NOTE | 2021-07-29 22:08 | XRR_ITS ---
PROCEDURE INFORMATION: Exam: XR Chest Exam date and time: 07/29/2021 10:08 PM Age: 45 years old Clinical indication: Device placement; Picc; Additional info: Central line placement TECHNIQUE: Imaging protocol: XR of the chest. Views: 1 view. COMPARISON: CR XR chest 1V portable [id number] 07/28/2021 12:29 PM FINDINGS: Tubes, catheters and devices: There is a presumed central venous catheter which is overlying the right upper chest laterally underlying the midportion of the right clavicle. The position is uncertain otherwise. Endotracheal tube terminates 4.5 cm above tia. Enteric tube terminates just distal to the esophageal hiatus. Lungs: Widespread ground-glass lesions in the lungs. Pleural spaces: Unremarkable. No pleural effusion. No pneumothorax. Heart/Mediastinum: Unremarkable. No cardiomegaly. Bones/joints: Unremarkable. XR/XR chest 1V portable [id number] IMPRESSION: There is a right upper chest central venous catheter which is retracted compared with prior imaging, possibly extravascular in the chest wall soft tissues. If there is blood return from the catheter, the tip may lie within the midportion of the subclavian vein. Revision recommended.
[2021-07-30] VITALS (60 sets, daily range): BP systolic 89–126; BP diastolic 58–86; PULSE 48–84; RESP 18–20; TEMP 36.5–36.8; O2SAT 90–97; BMI 28.3
[2021-07-30] MEDS: cisatracurium 100 MG in sodium chloride 0.9% 50 ML IV (03:16)
[2021-07-30] MEDS: ipratropium-albuterol 3 mL Neb INHALATION ×4 (03:16→20:55)
[2021-07-30 03:50] LABS: ABG PCO2 36.6 mmHg (35-45); ABG PH Result 7.46 (7.35-7.45); Arterial Blood Gas Hematocrit 37.7 % (37-47); Base Excess ABG 2.4 mmol/L (-2.0-2.0); Blood Gas Allen Test Pos; Blood Gas Sample Site Radial, right; Blood Gas Sample Type Arterial; HCO3 ABG 26.1 mmol/L (22-26); Oxygen Device VENT; PO2 ABG 80.6 mmHg (80.0-100.0)
[2021-07-30 04:06] LABS: Eosinophils % 0.2 %; Hematocrit 31.8 % (37.0-47.0); Hemoglobin 10.3 g/dL (11.5-15.3); Lymphocytes # 0.3 10^3/uL (0.8-4.8); Lymphocytes % 5.7 %; Mean Corpuscular HGB Conc 32.4 g/dL (30.0-36.0); Mean Corpuscular Hemoglobin 29.3 pg (28.0-34.0); Mean Corpuscular Volume 90.3 fl (81-99); Mean Platelet Volume 11.4 fL (7.4-10.4); Monocytes # 0.2 10^3/uL (0.2-0.9); Monocytes % 5.5 %; Neutrophils # 3.84 10^3/uL (1.8-7.7); Neutrophils % 87.2 %; Nucleated Red Blood Cells % 0 %; Platelet Count 306 10^3/cmm (130-400); Red Blood Count 3.52 10^6/uL (4.1-5.3); Red Cell Distribution Width 14.6 % (12.1-15.1); White Blood Count 4.4 10^3/uL (4.0-10.0)
[2021-07-30] MEDS: famotidine 20 mg/2 mL INJ IVP ×2 (04:07→14:41)
[2021-07-30] MEDS: propofol 1,000 MG/100 ML INJ 14.45 MG IV (04:10)
[2021-07-30 04:34] LABS: Anion Gap 15.6 (5-19); Blood Urea Nitrogen 9 mg/dL (6-20); C Reactive Protein 87.9 mg/L (0.0-4.9); Calcium 7.8 mg/dL (8.5-10.5); Carbon Dioxide 24 mmol/L (22-29); Chloride 101 mmol/L (98-107); Creatine Phosphokinase 202 U/L (26-192); Glomerular Filtration Rate 238.5 mL/min (90-130); Glucose 114 mg/dL (65-115); Osmolality Calculated 284 mOsm/kg (285-295); Potassium 3.6 mmol/L (3.5-5.1); Sodium 137 mmol/L (136-145)
[2021-07-30 04:38] LABS: Procalcitonin 0.08 ng/mL (0-0.5)
[2021-07-30] MEDS: remdesivir 100 MG in sodium chloride 0.9% (100 ml) 100 ML IV (05:46)
--- NOTE | 2021-07-30 07:47 | PC.NURSE ---
Morning Shift Notes BIS: 33 Patient drips are as follows: Propofol at 50 mcg/min, Fentanyl 100 mcg/min, Versed 6 mL/hr, Nimbex 15 mcg/min. Patient ventilator settings: FiO2 is 50, PEEP 8, VT 400, RR 20, VC AC Mode. Patient vital signs WNL. Patient currently prone position and will be placed supine position at 1000 today (07/30/21). Safety rounds and response to treatment will continue.
[2021-07-30] MEDS: propofol 1,000 MG/100 ML INJ 24.09 MG IV (08:36)
--- NOTE | 2021-07-30 09:00 | PC.NURSE ---
Central Line The central line in the right chest is not accessible. The central line does have sutures intact, but not connected to central line. The line is not to be removed or accessed until Dr. Mott sees the patient per . Will continue to monitor.
[2021-07-30] MEDS: dexamethasone 10 mg/mL INJ 6 MG IVP (09:01)
[2021-07-30] MEDS: ascorbic acid 500 mg Tablet PO (09:01)
[2021-07-30] MEDS: cholecalciferol (vitamin D3) 1,000 unit Tablet 1000 UNIT PO (09:01)
[2021-07-30] MEDS: zinc gluconate 50 mg Tablet PO (09:01)
--- NOTE | 2021-07-30 09:12 | PC.NURSE ---
Patient BIS: 46 Propofol titrated to 45 mcg/min, Fentanyl titrated to 75 mcg/min, Versed 6 mL/hr, and Nimbex 1.5 mcg/min. Patient current FiO2 is 40%, PEEP 8, VT 400 and RR 18. NG Tube Assessment & Medication Administration NG tube to wall suction, green liquid in tubing and wall canister. NG Tube removed from suction and held for 30 minutes before placing back. Patient tube placement check through auscultation of the stomach and visualizing the color of liquid. 50 mL of water flushed through NG tube before administration of medication, 20 mL of medications and water administered and the 50 mL more of water. Patient tolerated well. Will continue to monitor.
--- NOTE | 2021-07-30 10:00 | PC.NURSE ---
Patient removed from prone position and placed in supine position. Patient tolerated well. Patient restraints applied to prevent the patient from self extubation. Propofol reduced to 45 mcg/min and Fentanyl 75 mcg/min. Nimbex paused due to end of proning session. Will continue to monitor.
--- NOTE | 2021-07-30 11:29 | PC.NURSE ---
Family Updated This nurse and DIANN Eller notified family member (), Jose Roberto, through [employer], of the 's current condition. No questions or comments at this time, all questions answered through Facetime. Patient's will be notified after we receive report from Dr. Mott. Will continue to monitor.
--- NOTE | 2021-07-30 13:10 | PM.PN ---
Subjective Subjective: Interval history: Status post 2 cycles of proning, today FiO2 is 40%, Nimbex has been turned off patient is in supine position, asked ICU nurse to start awakening trials decrease sedation and prepare for extubation in next 24 hrs Vitals/I&O/Wt Last Vital Signs Temp 97.8 F 07/30/21 10:00 Pulse 55 L 07/30/21 12:30 Resp 18 07/30/21 12:00 BP 110/80 07/30/21 12:30 Pulse Ox 93 07/30/21 12:30 07/29/21 07/30/21 07/30/21 22:59 06:59 14:59 Intake Total 718.195 / 2122.112 223.031 / 2345.143 239.301 / 239.301 Output Total 800 / 800 850 / 1650 Balance -81.805 / 1322.112 -626.969 / 695.143 239.301 / 239.301 Weight last 48 hrs Weight 77.111 kg Weight 77.111 kg Weight 78.471 kg Physical Exam Narrative: EXAM NARRATIVE: Assisted bilateral breath sounds, patient is sedated, paralytics has been turned off FiO2 40% Central line has been dislodged She has 2 peripheral IV access S1, S2, bradycardia noted on telemetry Normal hemodynamics Soft abdomen Lower extremity no edema Neuro exam limited -300 net balance Alcantara catheter draining slightly concentrated colored urine Urinary Catheter Management^: Alcantara: Cath Placed During This Visit: yes Reason for Continuing Indwelling Catheter: Accurate Measurement of Urinary Output in Critically Ill Patients Urinary Catheter Time of Insertion: 11:12 Data : 07/30/21 03:30 07/30/21 03:30 Micro: Microbiology 07/28/21 10:54 Gram Stain - Final Sputum - Endotracheal Tube Aspirate Sputum Culture - Final 07/29/21 00:25 Blood Culture - Preliminary Blood NEGATIVE TO DATE 07/28/21 13:00 Blood Culture - Preliminary Blood NEGATIVE TO DATE 07/28/21 18:00 MRSA Culture - Final Nose 07/28/21 18:00 Bacterial Antigens - Final Urine,Voided A&P Assessment and plan (1) ARDS (adult respiratory distress syndrome): Status: Acute (2) Elevated d-dimer: Status: Acute (3) Hypokalemia: Status: Acute (4) Pneumonia due to COVID-19 virus: Status: Acute (5) Acute respiratory failure: Status: Acute Additional A&P Information ARDS Acute hypoxia related to COVID-19 FiO2 40%, P to F ratio has improved, responded very well to 2 cycles of proning Turn off paralytics today Sedation vacation Awakening trials Depending on her neurological status will do weaning trial Status post Actemra, continue Decadron and remdesivir updated She has remained afebrile, procalcitonin unremarkable, CRP 87, CK 202 CTA ruled out PE Will request venous Dopplers to rule out DVT High D-dimer most likely secondary to severe Covid infection Hypokalemia: Potassium repleted Full code Start tube feeding diet, dietary recommendations appreciated Attestations Medical Necessity Statement*: Sedation vacation weaning trial Time Spent in Patient Care: 16 - 35 minutes Coding Level of Care Code Acute Machine Sign Writer for [facility] Diagnoses ARDS (adult respiratory distress syndrome) J80 Elevated d-dimer R79.89 Hypokalemia E87.6 Pneumonia due to COVID-19 virus U07.1; J12.82 Acute respiratory failure J96.00
[2021-07-30] MEDS: propofol 1,000 MG/100 ML INJ 21.68 MG IV (13:29)
--- NOTE | 2021-07-30 13:31 | PC.NUTR ---
Tube feeding consult received per Dr. Taveras. Recommend Pulmocare, starting at 10 ml/hr, increasing by 10 ml/hr q 8 hrs to goal rate of 30 ml/hr, with 100 ml H2O flushes q 4 hrs, to provide 1080 kcal, 45 g protein, and 1165 ml H2O. Flushes to be adjusted per MD discretion. 572 kcal/day from propofol and 408 kcal/day from levaquin-D5W at current rates. Noted feedings to be provided when pt not proning. See full RD assessment for further details.
--- NOTE | 2021-07-30 13:38 | USR_ITS ---
PROCEDURE INFORMATION: Exam: US Duplex Lower Extremity Veins, Bilateral Exam date and time: 07/30/2021 1:38 PM Age: 45 years old Clinical indication: Abnormal findings; Abnormal lab test; Elevated d-dimer; Additional info: High d-dimer, rule out dvt TECHNIQUE: Imaging protocol: Real-time duplex ultrasound of the extremities with 2-D [place] scale, color Doppler flow and spectral waveform analysis with image documentation. Complete exam focused on the bilateral lower extremity veins. COMPARISON: No relevant prior studies available. FINDINGS: Right deep veins: Unremarkable. The common femoral, femoral, proximal profunda femoral and popliteal veins are patent without thrombus. Normal Doppler waveforms. Normal compressibility and/or augmentation response. Right superficial veins: Saphenofemoral junction is patent without thrombus. Left deep veins: Unremarkable. The common femoral, femoral, proximal profunda femoral and popliteal veins are patent without thrombus. Normal Doppler waveforms. Normal compressibility and/or augmentation response. Left superficial veins: Saphenofemoral junction is patent without thrombus. Soft tissues: Unremarkable. US/CV venous duplex [facility] [id number] IMPRESSION: No evidence of deep vein thrombosis.
--- NOTE | 2021-07-30 13:43 | ECG_ITS ---
[facility] Test Date: 2021-07-30 Pat Name: Zulma Rodriguez Department: Room: ICU12 Gender: Female Property Technician: : 1975 Requested By: Rebecca Taveras Order Number: [id number] Dennise MD: Ledy Jacinto M.D. Measurements Intervals [place] Rate: 50 P: 32 CO: 145 QRS: 10 QRSD: 76 T: 27 QT: 485 QTc: 444 Interpretive Statements SINUS BRADYCARDIA Compared to ECG 07/28/2021 11:12:36 Sinus tachycardia no longer present T-wave abnormality no longer present Electronically Signed On 07-31-2021 21:30:30 CDT by Ledy Jacinto M.D. [id number]
[2021-07-30] MEDS: enoxaparin 40 mg/0.4 mL Syringe SUBCUT (14:39)
[2021-07-30] MEDS: calcium gluconate 0.1 gm/mL 10% SDV 10mL 1 GM IVP (14:39)
--- NOTE | 2021-07-30 15:37 | P.PN_ITS ---
Subjective Subjective: Interval history: The patient was seen and examined. Please intubated and sedated. Off of paralytics. The patient is current on 35% oxygen. Does not need to get performed again. Medications: Reviewed: Yes Vitals/I&O/Wt Last Vital Signs Temp 97.8 F 07/30/21 10:00 Pulse 56 L 07/30/21 15:35 Resp 18 07/30/21 14:00 BP 104/74 07/30/21 14:00 Pulse Ox 94 07/30/21 14:00 07/30/21 07/30/21 07/30/21 06:59 14:59 22:59 Intake Total 223.031 / 2345.143 456.283 / 456.283 Output Total 850 / 1650 Balance -626.969 / 695.143 456.283 / 456.283 Weight last 48 hrs Weight 170 lb Weight 170 lb Physical Exam Narrative: EXAM NARRATIVE: General: The patient is intubated and sedated Neck: No JVD Respiratory: Auscultation: Coarse breath sound bilaterally, no wheezing or rhonchi Cardiovascular: Regular rate and rhythm, S1-S2 present, no murmur, no peripheral edema. Abdomen: Soft, nondistended, positive bowel sound Skin: No rash Neuro: The patient is sedated Urinary Catheter Management^: Alcantara: Cath Placed During This Visit: yes Reason for Continuing Indwelling Catheter: Accurate Measurement of Urinary Output in Critically Ill Patients Urinary Catheter Time of Insertion: 11:12 Data : 07/30/21 03:30 07/30/21 03:30 Micro: Microbiology 07/28/21 10:54 Gram Stain - Final Sputum - Endotracheal Tube Aspirate Sputum Culture - Final 07/29/21 00:25 Blood Culture - Preliminary Blood NEGATIVE TO DATE 07/28/21 13:00 Blood Culture - Preliminary Blood NEGATIVE TO DATE Attestation for Other Data: I personally reviewed and interpreted the following: A&P Assessment and plan (1) ARDS (adult respiratory distress syndrome): This is a 45-year-old lady with ARDS secondary to SARS-CoV-2 pneumonia. The patient is currently on 35% oxygen. We will discontinue the Versed as soon as possible. The plan is to extubate her tomorrow morning. Status: Acute (2) Pneumonia due to COVID-19 virus: The patient is receiving remdesivir, dexamethasone. She received Tocilizumab on July 28. The patient is currently covered with Levaquin. There is no evidence of a secondary bacterial infection at this time. Status: Acute Attestations Medical Necessity Statement*: Will defer to the primary team Coding Level of Care Code Acute [place] Attendant for [facility] Fwd Diagnoses ARDS (adult respiratory distress syndrome) J80 Pneumonia due to COVID-19 virus U07.1; J12.82
[2021-07-30 15:46] LABS: Troponin T (5th) Once 6 ng/L (0-10)
[2021-07-30 15:56] LABS: Magnesium 2.5 mg/dL (1.7-2.3); Thyroid Stimulating Hormone 0.46 uIU/mL (0.27-4.20)
--- NOTE | 2021-07-30 16:15 | PC.NURSE ---
Family Updated Patient's Facetimed earlier today, and waiting for Dr. Mott to come and visit the patient. After Pantera visited, the called the to check on her. notified of patient's improvements and the plan of extubation tomorrow. Will continue to keep the family updated.
--- NOTE | 2021-07-30 16:49 | PC.NURSE ---
Addendum entered by BENNETT Manzano 07/30/21 16:51: Versed titration see MAR notes for more information. Original Note: Versed weaned down today, and was turn off from 2mcg/min per physician's verbal order for plans of extubation. Patient tolerating well. Will continue to monitor.
[2021-07-30] MEDS: levofloxacin-dextrose 5 % 750 MG/150 ML PREMIX 150 MG IV (17:42)
[2021-07-30] MEDS: propofol 1,000 MG/100 ML INJ 16.86 MG IV ×2 (17:43→23:08)
--- NOTE | 2021-07-30 18:11 | PC.NURSE ---
Shift Assessment Frequent safety and comfort rounds continue. Orders and/or nursing care completed as indicated. Patient monitored for response to intervention and treatment(s). Family educated on patient status and ventilation status. Will continue to monitor. Able to titrate Fentanyl to 75 mcg/min, Propofol to 35 mcg/min, and her Versed was titrated down and is now off per Dr. Mott. Plans of extubating the patient tomorrow (07/31/21) as long as the patient status continues to improve. Patient tolerating new FiO2 setting of 35% well. Patient bradycardic throughout shift, running rates of 48-53. Will continue to monitor.
[2021-07-31] VITALS (52 sets, daily range): BP systolic 98–149; BP diastolic 68–103; PULSE 52–131; RESP 16–35; TEMP 36.5–37; O2SAT 86–100
[2021-07-31] MEDS: famotidine 20 mg/2 mL INJ IVP ×2 (02:54→13:44)
[2021-07-31] MEDS: ipratropium-albuterol 3 mL Neb INHALATION ×4 (03:00→20:47)
[2021-07-31] MEDS: remdesivir 100 MG in sodium chloride 0.9% (100 ml) 100 ML IV (05:04)
--- NOTE | 2021-07-31 05:10 | PC.NURSE ---
Shift Note Frequent safety and comfort rounds continue. Orders and/or nursing care completed as indicated. Patient monitored for response to intervention and treatment(s). Education provided includes transitioning from vent to other oxygen devices. Patient and/or hr representative reinforcement needed. Will continue to monitor.
[2021-07-31 05:30] LABS: Blood Urea Nitrogen 15 mg/dL (6-20); C Reactive Protein 38.6 mg/L (0.0-4.9); Calcium 7.8 mg/dL (8.5-10.5); Carbon Dioxide 25 mmol/L (22-29); Chloride 104 mmol/L (98-107); Glomerular Filtration Rate 238.5 mL/min (90-130); Glucose 96 mg/dL (65-115); Osmolality Calculated 291 mOsm/kg (285-295); Sodium 140 mmol/L (136-145)
[2021-07-31 05:32] LABS: Anion Gap 14.6 (5-19); Potassium 3.6 mmol/L (3.5-5.1)
[2021-07-31 06:00] LABS: ABG PCO2 37.5 mmHg (35-45); ABG PH Result 7.46 (7.35-7.45); Arterial Blood Gas Hematocrit 55.4 % (37-47); Base Excess ABG 2.5 mmol/L (-2.0-2.0); Blood Gas Operator Identificat JB; Blood Gas Sample Site Not specified; Blood Gas Sample Type Arterial; HCO3 ABG 26.3 mmol/L (22-26); Oxygen Device VENT; PO2 ABG 72.7 mmHg (80.0-100.0)
[2021-07-31] MEDS: propofol 1,000 MG/100 ML INJ 12.04 MG IV (06:05)
--- NOTE | 2021-07-31 07:35 | PC.NURSE ---
Morning Shift Report Frequent safety and comfort rounds continue. Orders and/or nursing care completed as indicated. Patient monitored for response to intervention and treatment(s). Plan to wean patient off sedation today for extubation. Patient Fentanyl lowered from 50 mcg to 35 mcg and Propofol lowered from 25 mcg to 15 mcg. Patient awake and nodding to my questions. Patient able to squeeze my hands when asked. Explained to the patient the plan for today and that she needed to stay calm so that the tube could be removed. Patient nodded in agreement. Will continue to monitor. Current vent settings are as follows: VC-AC Mode FiO2: 35% PEEP: 8 VT: 400 RR: 18
[2021-07-31] MEDS: HYDROmorphone 1 mg/mL INJ 1 mL IVP (08:23)
[2021-07-31] MEDS: dexamethasone 10 mg/mL INJ 6 MG IVP (08:29)
--- NOTE | 2021-07-31 08:48 | PC.CHAP ---
Pastoral Care Encounter/Spiritual Assessment Type of Contact [] Declined upper caser visit [] Patient/Family/Request visit [] Outpatient visit [] Follow-up visit [] Physician referral [] Code/Alert [x] Routine visit [] Staff referral [] Actively dying [] Patient sleeping [] Family support [] [] Out of room [] Palliative care [] [x] Receiving care in room [] Pre-surgical visit [] Trauma [] Long length of stay [x] ICU visit [] Other: Relational/Emotional Strength [] Patient feels connected with others/family/visitors/staff [] Distress [] Loneliness/isolation [] Abandonment Spirituality of Patient [] Person of Radha [] Attends Moravian of their Radha [] Believes in Prayer [] Reads Bible or Cheondoism materials [] There are Spiritual issues to be addressed Baseball Umpire [employer] Interventions [x] Prayer [] Active listening [] Non-anxious presence [] Spiritual/emotional support [] Crisis/trauma care [] Spiritual counseling [] Bereavement support [] Provided bereavement packet [] Provided Bible/devotional materials [] Provided toy/stuffed animal, coloring book to patient or family member [] Provided Communion [] Anointing/Brogan [] Salvation [x] Completed spiritual assessment [] Other: Impact on Illness or Injury [] Angry [] Fearful [] Anxious [] Often cries [] Exhaustion [] Unable to work [] Unable to attend holiness [] Unable to walk/stand [] Unable to read [] Unable to drive [] Unable to eat/drink [] Unable to sleep [] Unable to be with family [] Patient intubated [] Other: Summary Time spent with patient
[2021-07-31 09:38] LABS: ABG PCO2 39.6 mmHg (35-45); ABG PH Result 7.47 (7.35-7.45); Alveolar-Arterial Oxygen Gradi 13.7 mmHg (5-10); Base Excess ABG 4.8 mmol/L (-2.0-2.0); Blood Gas Allen Test Pos; Blood Gas Operator Identificat CAK; Blood Gas Sample Site Brachial, left; Blood Gas Sample Type Arterial; Carboxyhemoglobin 0.7 %THgb (0.4-20.1); HCO3 ABG 28.8 mmol/L (22-26); HGB O2 Sat 90.3 % (95-100); Ionized Calcium Level - ABG 1.1 mmol/L (1.1-1.4); Methemoglobin 0.8 % (0.4-1.5); Oxygen Device VENT; Oxygen Saturation ABG 91.7; PO2 ABG 60.4 mmHg (80.0-100.0); Potassium Level - ABG 3.3 mmol/L (3.5-5.0); Total Hemoglobin 11.4 g/dL (12-16)
--- NOTE | 2021-07-31 09:56 | PC.NURSE ---
Shift Assessment Patient sedation paused and patient weaning trial started around 0800. Patient tolerated weaning trial well. Patient order for ABGs and then the doctor will be notified. Will continue to monitor.
--- NOTE | 2021-07-31 10:13 | PC.NURSE ---
Addendum entered by BENNETT Manzano 07/31/21 10:57: Patient family called twice to notify them of after extubation status. Patient vital signs within normal limits. Will continue to monitor. Original Note: Patient successfully extubated. Patient placed on HHFNC 40L 40%. Patient current VS: HR 103, O2 90%, RR 22, BP 118/64. Patient family notified. Will continue to monitor.
--- NOTE | 2021-07-31 11:37 | PC.NURSE ---
Patient up to chair and tolerating well. Patient working on acapella and incentive spirometer. Will continue to monitor.
[2021-07-31] MEDS: enoxaparin 40 mg/0.4 mL Syringe SUBCUT (13:44)
--- NOTE | 2021-07-31 14:17 | PC.NURSE ---
Wasted 74ml propofol and 96 ml fentanyl with Sheri ELEMENTARY SUBSTITUTE TEACHER.
--- NOTE | 2021-07-31 14:22 | PC.NURSE ---
Wasted 74ml Propofol and 96 ml Fentanyl with DIANN Borges
--- NOTE | 2021-07-31 15:47 | PC.NURSE ---
Patient family ( and children) called using the ICU iPad via Answer[employer]To. Family updated on patient improvements and about transfer orders for Medical Surgical floors. Will continue to monitor.
--- NOTE | 2021-07-31 15:49 | PC.NURSE ---
Bedside Swallow Study Patient swallow study performed at bedside. Patient given small sips of ice water. Patient tolerated well without coughing. Speech Therapy order in for swallow evaluation and then the patient diet will be ordered. Call light, bedside table and patient items in reach. Bed in low locked position. HOB elevated. Will continue to monitor.
--- NOTE | 2021-07-31 16:52 | PM.PN ---
Subjective Subjective: Interval history: After second cycle of proning patient was extubated on 07/31 Speech evaluation done she did show mild signs of aspiration with clear liquids we will keep her n.p.o. for now Transfer out of ICU to [facility] She was extubated to heated high flow however transitioned down to 6 L nasal cannula Vitals/I&O/Wt Last Vital Signs Temp 98.4 F 07/31/21 16:39 Pulse 104 H 07/31/21 16:39 Resp 18 07/31/21 16:39 BP 134/92 07/31/21 16:39 Pulse Ox 90 07/31/21 16:39 07/31/21 07/31/21 07/31/21 06:59 14:59 22:59 Intake Total 383.950 / 1207.993 36.287 / 36.287 Output Total 300 / 825 Balance 83.950 / 382.993 36.287 / 36.287 Weight last 48 hrs Weight 79.917 kg Weight 77.111 kg Physical Exam Narrative: EXAM NARRATIVE: Middle-age female Saturating well on 6 L nasal cannula S1, S2 sinus rhythm Does show sinus tachycardia on and off Abdomen soft Lower extremity no edema No neurological deficit Urinary Catheter Management^: Alcantara: Cath Placed During This Visit: yes Reason for Continuing Indwelling Catheter: Accurate Measurement of Urinary Output in Critically Ill Patients Urinary Catheter Time of Insertion: 11:12 Data : 07/30/21 03:30 07/31/21 04:30 A&P Assessment and plan (1) ARDS (adult respiratory distress syndrome): Status: Acute (2) Transaminitis: Status: Acute (3) Elevated d-dimer: Status: Acute (4) Hypokalemia: Status: Acute (5) Pneumonia due to COVID-19 virus: Status: Acute (6) Acute respiratory failure: Status: Acute Additional A&P Information ARDS COVID-19 Acute hypoxic restaurant failure Extubated 07/31 Continue Decadron and remdesivir Status post Actemra on admission Current doing well on 6 L nasal cannula CTA ruled out PE Venous Dopplers negative for DVT Speech evaluation after extubation: Currently n.p.o. Hypokalemia: Repleted Full code N.p.o. DVT prophylaxis Lovenox PT evaluation, plan to discharge home in next 48 hours Attestations Medical Necessity Statement*: Continue medical management on [facility] Time Spent in Patient Care: 16 - 35 minutes Coding Level of Care Code Acute Hydraulic Tester for g Fwd Diagnoses ARDS (adult respiratory distress syndrome) J80 Transaminitis R74.01 Elevated d-dimer R79.89 Hypokalemia E87.6 Pneumonia due to COVID-19 virus U07.1; J12.82 Acute respiratory failure J96.00
[2021-07-31] MEDS: sodium chloride 0.9% 1,000 ML 75 ML IV (19:57)
[2021-07-31] MEDS: hyDROXYzine 25 mg Capsule PO ×2 (22:59)
[2021-08-01] VITALS (15 sets, daily range): BP systolic 118–164; BP diastolic 88–103; PULSE 78–133; RESP 18–24; TEMP 36.8–37.3; O2SAT 40–96
[2021-08-01] MEDS: ipratropium-albuterol 3 mL Neb INHALATION ×3 (03:09→20:07)
--- NOTE | 2021-08-01 04:27 | PC.NURSE ---
Patient has increased blood pressure and HR with 4 O'clock vitals. After speaking with/ evaluating the patient. Anxiety seams to be the cause of increase in vitals. Called provider for anxiety medication.
[2021-08-01] MEDS: LORazepam 2 mg/mL INJ 1 mL 0.5 MG IVP (05:29)
[2021-08-01] MEDS: remdesivir 100 MG in sodium chloride 0.9% (100 ml) 100 ML IV (05:52)
[2021-08-01 06:40] LABS: Basophils % 0.2 %; Eosinophils # 0.1 10^3/uL (0.0-0.8); Eosinophils % 2.1 %; Hematocrit 36.5 % (37.0-47.0); Hemoglobin 11.3 g/dL (11.5-15.3); Lymphocytes # 0.7 10^3/uL (0.8-4.8); Lymphocytes % 13.8 %; Mean Corpuscular Volume 93.8 fl (81-99); Mean Platelet Volume 10.7 fL (7.4-10.4); Monocytes # 0.5 10^3/uL (0.2-0.9); Monocytes % 9.9 %; Neutrophils # 3.63 10^3/uL (1.8-7.7); Neutrophils % 70.7 %; Nucleated Red Blood Cells % 0 %; Platelet Count 346 10^3/cmm (130-400); Red Blood Count 3.89 10^6/uL (4.1-5.3); Red Cell Distribution Width 14.6 % (12.1-15.1); White Blood Count 5.1 10^3/uL (4.0-10.0)
[2021-08-01 07:04] LABS: Anion Gap 13.3 (5-19); Blood Urea Nitrogen 19 mg/dL (6-20); Calcium 7.8 mg/dL (8.5-10.5); Carbon Dioxide 24 mmol/L (22-29); Chloride 107 mmol/L (98-107); Glomerular Filtration Rate 132.2 mL/min (90-130); Glucose 89 mg/dL (65-115); Osmolality Calculated 294 mOsm/kg (285-295); Potassium 3.3 mmol/L (3.5-5.1); Sodium 141 mmol/L (136-145)
[2021-08-01] MEDS: lidocaine 1% 5 ML in potassium chloride premix 100 ML 25 ML IV (08:41)
[2021-08-01] MEDS: ascorbic acid 500 mg Tablet PO (08:49)
[2021-08-01] MEDS: dexamethasone 10 mg/mL INJ 6 MG IVP (08:49)
[2021-08-01] MEDS: cholecalciferol (vitamin D3) 1,000 unit Tablet 1000 UNIT PO (08:49)
[2021-08-01] MEDS: zinc gluconate 50 mg Tablet PO (08:49)
--- NOTE | 2021-08-01 11:37 | P.PN_ITS ---
Subjective Subjective: Interval history: Patient was started on heated high flow because of anxiety and tachypnea Plan to wean off oxygen PT OT speech evaluation Still n.p.o. Patient did not endorse new complaints She is mostly nodding her head, minimal speech no neurological deficits noted Vitals/I&O/Wt Last Vital Signs Temp 98.6 F 08/01/21 08:00 Pulse 104 H 08/01/21 08:00 Resp 18 08/01/21 08:00 BP 141/103 08/01/21 08:00 Pulse Ox 90 08/01/21 08:00 07/31/21 08/01/21 08/01/21 22:59 06:59 14:59 Intake Total 0 / 36.287 100 / 581.726 0240 / 1000 Output Total 200 / 200 Balance 0 / 36.287 -100 / -63.713 1000 / 1000 Weight last 48 hrs Weight 81.193 kg Weight 79.917 kg Physical Exam 2 Narrative: EXAM NARRATIVE: Patient was sitting in her bed Heated high flow 40 L 45% No neurological deficit She is able to cough no active neurological deficit EOMI, PERRLA Minimal speech nodding her head appropriately to my questions Abdomen soft Bowel sound present S1, S2 sinus tachycardia Lower extremity no edema Urinary Catheter Management^: Alcantara: Cath Placed During This Visit: yes Reason for Continuing Indwelling Catheter: Accurate Measurement of Urinary Output in Critically Ill Patients Urinary Catheter Time of Insertion: 11:12 Data : 08/01/21 06:08 08/01/21 06:08 A&P Assessment and plan (1) ARDS (adult respiratory distress syndrome): Status: Acute (2) Hypokalemia: Status: Acute (3) Pneumonia due to COVID-19 virus: Status: Acute (4) Acute respiratory failure: Status: Acute (5) Fatigue: Status: Acute Additional A&P Information ARDS COVID-19 pneumonia Patient extubated on 07/31 Currently requiring heated high flow 40 L, 45%, wean off oxygen PT/OT speech evaluation pending Still n.p.o. Fatigue secondary to sedation paralytics and COVID-19 Follow-up with PT recommendations We will add Ritalin Sinus tachycardia Clinically looks dry, I would like to give her 1 L bolus to see if she is responsive She has not eaten in last 48 hours No chest pain Hypokalemia: Repleted Full code Speech evaluation DVT prophylaxis Lovenox Disposition depending on PT evaluation and once her O2 requirement is between 4 to 6 L nasal cannula Attestations Medical Necessity Statement*: Continue medical management Time Spent in Patient Care: 16 - 35 minutes Coding Level of Care Code Acute Manager Cleaning for g Fwd Diagnoses ARDS (adult respiratory distress syndrome) J80 Hypokalemia E87.6 Pneumonia due to COVID-19 virus U07.1; J12.82 Acute respiratory failure J96.00 Fatigue R53.83
[2021-08-01] MEDS: lactated ringers 1,000 ML 999 ML IV (12:51)
[2021-08-01] MEDS: methylphenidate 10 mg Tablet PO (12:51)
[2021-08-01] MEDS: enoxaparin 40 mg/0.4 mL Syringe SUBCUT (15:26)
[2021-08-01] MEDS: cloNIDine 0.1 mg Tablet PO (16:36)
[2021-08-01] MEDS: levoFLOXacin 750 mg Tablet PO (17:59)
[2021-08-02] VITALS (17 sets, daily range): BP systolic 113–132; BP diastolic 81–93; PULSE 87–132; RESP 18–23; TEMP 36.4–36.9; O2SAT 89–100
[2021-08-02] MEDS: ipratropium-albuterol 3 mL Neb INHALATION ×4 (03:36→20:19)
[2021-08-02 05:36] LABS: Eosinophils # 0.1 10^3/uL (0.0-0.8); Eosinophils % 2.1 %; Hematocrit 39.1 % (37.0-47.0); Hemoglobin 12.2 g/dL (11.5-15.3); Lymphocytes # 0.8 10^3/uL (0.8-4.8); Lymphocytes % 17.2 %; Mean Corpuscular HGB Conc 31.2 g/dL (30.0-36.0); Mean Corpuscular Hemoglobin 29.3 pg (28.0-34.0); Mean Corpuscular Volume 93.8 fl (81-99); Mean Platelet Volume 10.4 fL (7.4-10.4); Monocytes # 0.5 10^3/uL (0.2-0.9); Monocytes % 10.7 %; Neutrophils # 3.28 10^3/uL (1.8-7.7); Neutrophils % 68.5 %; Nucleated Red Blood Cells % 0 %; Platelet Count 323 10^3/cmm (130-400); Red Blood Count 4.17 10^6/uL (4.1-5.3); Red Cell Distribution Width 14.5 % (12.1-15.1); White Blood Count 4.8 10^3/uL (4.0-10.0)
[2021-08-02 05:56] LABS: Anion Gap 13.5 (5-19); Blood Urea Nitrogen 19 mg/dL (6-20); C Reactive Protein 9.6 mg/L (0.0-4.9); Calcium 8.2 mg/dL (8.5-10.5); Carbon Dioxide 26 mmol/L (22-29); Chloride 105 mmol/L (98-107); Glomerular Filtration Rate 132.2 mL/min (90-130); Glucose 81 mg/dL (65-115); Osmolality Calculated 293 mOsm/kg (285-295); Potassium 3.5 mmol/L (3.5-5.1); Sodium 141 mmol/L (136-145)
[2021-08-02 06:00] LABS: D Dimer 6.54 ug/mIFEU (0-0.59)
--- NOTE | 2021-08-02 08:15 | CT_ITS ---
WS: [id number] CT CHEST ANGIOGRAPHY WITH REFORMATS HISTORY: Sinus tachycardia TECHNIQUE: Contiguous axial images are obtained through the chest during arterial injection of intrav enous contrast. Images are reconstructed to evaluate the pulmonary arteries. MIP imaging also reviewe d. All CT scans at [facility] use at least one of these dose optimization techniques: automat ed exposure control; mA and/or kV adjustment per patient size (includes targeted exams where dose is matched to clinical indication); or iterative reconstruction. CONTRAST: Omnipaque 350; 72 mL IV. DLP: 568.11 mGy.cm COMPARISON: 07/28/2021 Excellent opacification of the pulmonary arteries. Bilateral lower lobe pulmonary emboli in the segme ntal and subsegmental branches, greatest on the RIGHT. Additional moderate pulmonary embolic burden i n the RIGHT middle lobe. No central pulmonary emboli. Normal size of the pulmonary artery. Normal aor ta. No RIGHT heart strain. There is a small circumferential pericardial effusion. Extensive bilateral groundglass opacifications and consolidations. There has been very slight improve ment in the extent of the consolidations. No pneumothorax or pneumomediastinum. No mediastinal or hil ar adenopathy. Bilateral breast implants. Diffuse moderate hepatic steatosis. No adrenal mass. CT/CT angio chest PE protcl [id number] IMPRESSION: 1. New bilateral lower lobe and RIGHT middle lobe pulmonary emboli. 2. No RIGHT heart strain. 3. Small pericardial effusion. 4. Mild improvement in the bilateral extensive pulmonary opacifications and co nsolidations. Notified Rebecca Taveras MD at 08/02/2021 10:23 AM.
[2021-08-02] MEDS: dexamethasone 4 mg/mL INJ IVP (09:12)
[2021-08-02] MEDS: zinc gluconate 50 mg Tablet PO (09:53)
[2021-08-02] MEDS: ascorbic acid 500 mg Tablet PO (09:53)
[2021-08-02] MEDS: methylphenidate 10 mg Tablet PO (09:53)
[2021-08-02] MEDS: cholecalciferol (vitamin D3) 1,000 unit Tablet 1000 UNIT PO (09:54)
[2021-08-02] MEDS: iohexol 350 mg/mL 100 mL Btl IV (10:13)
--- NOTE | 2021-08-02 13:18 | PM.PN ---
Subjective Subjective: Interval history: Patient is on heated high flow saturating well 30 L, 40% endorsing lethargy and fatigue pump, patient did try to eat some breakfast this morning, passing flatus no bowel movement yet, afebrile, tachycardia improved with clonidine dose yesterday CT requested this morning revealed PE segmental and subsegmental without right heart strain pericardial fusion without significant change Vitals/I&O/Wt Last Vital Signs Temp 98.1 F 08/02/21 12:00 Pulse 128 H 08/02/21 12:00 Resp 18 08/02/21 12:00 BP 125/92 08/02/21 12:00 Pulse Ox 92 08/02/21 12:00 08/01/21 08/02/21 08/02/21 22:59 06:59 14:59 Intake Total 240 / 2345 325 / 2670 120 / 120 Output Total 600 / 600 Balance -360 / 1745 325 / 2070 120 / 120 Weight last 48 hrs Weight 82.129 kg Weight 81.193 kg Physical Exam Narrative: EXAM NARRATIVE: Patient sitting comfortably however appears slightly anxious Asking appropriate questions Does not look dehydrated S1, S2 sinus tachycardia Bilateral breath sounds with mild rhonchi Abdomen soft Lower extremity no edema Appropriate mood and affect however takes time to respond to my questions no neurological deficits no signs of encephalopathy Urinary Catheter Management^: Alcantara: Cath Placed During This Visit: yes Reason for Continuing Indwelling Catheter: Acute Urinary Retention or Obstruction Urinary Catheter Time of Insertion: 11:12 Data : 08/02/21 05:27 08/02/21 05:27 Micro: Microbiology 07/28/21 13:00 Blood Culture - Final Blood NO GROWTH AFTER 5 DAYS A&P Assessment and plan (1) Fatigue: Status: Acute (2) ARDS (adult respiratory distress syndrome): Status: Acute (3) Elevated d-dimer: Status: Acute (4) Hypokalemia: Status: Acute (5) Pneumonia due to COVID-19 virus: Status: Acute (6) Acute respiratory failure: Status: Acute (7) Pulmonary embolism: Status: Acute Additional A&P Information Persistent hypoxia related to ARDS COVID-19 pneumonia Acute PE Start therapeutic Lovenox PT/OT/speech therapy Patient is constipated however she has not been able to eat much No right heart strain pericardial fusion without any worsening Level 3 dysphagia diet Ritalin for fatigue and lethargy in hopes to improve her energy Continue multivitamins Goal is to wean off her oxygen and bring it down to 4 to 6 L, will plan to discharge when she is able to get out of bed to chair and walk around in the room for 5 minutes without desaturation I will discontinue Levaquin which was empirical use Full code Level 3 dysphagia diet DVT prophylaxis we will start therapeutic dose Attestations Medical Necessity Statement*: Anticipating discharge once we meet above-mentioned goals Time Spent in Patient Care: 16 - 35 minutes Coding Level of Care Code Acute Relationship Consultant for Chg Fwd Diagnoses Fatigue R53.83 ARDS (adult respiratory distress syndrome) J80 Elevated d-dimer R79.89 Hypokalemia E87.6 Pneumonia due to COVID-19 virus U07.1; J12.82 Acute respiratory failure J96.00 Pulmonary embolism I26.99
[2021-08-02] MEDS: cloNIDine 0.1 mg Tablet 0.2 MG PO (14:24)
[2021-08-02] MEDS: sodium chloride 0.9% 500 ML 999 ML IV (14:24)
--- NOTE | 2021-08-02 15:08 | PC.OT ---
OT EVALUATION ORDERS RECEIVED; SCREEN COMPLETED. PATIENT WAS ABLE TO DEMONSTRATE ABILITY TO PERFORM ADLS INDEPENDENTLY; WHICH SHE STATES THAT SHE DID EARLIER TODAY. PATIENT INSTRUCTED IN PLB AND ENERGY CONSERVATION TECHNIQUES. NO FURTHER SKILLED OT REQUIRED AT THIS TIME.
[2021-08-02] MEDS: enoxaparin 80 mg/0.8 mL Syringe SUBCUT (15:30)
--- NOTE | 2021-08-02 15:53 | PC.RESP ---
RT Shift Note Frequent safety and respiratory rounds continue. Orders completed as indicated. Patient monitored pre and post treatments throughout shift. Patient [Did.] tolerate treatments appropriately. Condition [.DidNotChange]. Patient and/or sales representative electric service educated on respiratory treatment and medications. Patient and/or sales representative electric service [verbalized understanding. Will continue to monitor patient progress.
[2021-08-02] MEDS: sennosides-docusate Tablet 2 TAB PO (18:24)
[2021-08-02] MEDS: metoprolol tartrate 25 mg Tablet PO (20:50)
[2021-08-03] VITALS (20 sets, daily range): BP systolic 119–136; BP diastolic 84–91; PULSE 78–107; RESP 18–19; TEMP 36.4–37.1; O2SAT 91–99
[2021-08-03] MEDS: enoxaparin 80 mg/0.8 mL Syringe SUBCUT ×2 (02:08→14:16)
[2021-08-03] MEDS: ipratropium-albuterol 3 mL Neb INHALATION ×4 (02:56→20:21)
[2021-08-03 05:59] LABS: Anion Gap 12.2 (5-19); Blood Urea Nitrogen 14 mg/dL (6-20); Calcium 8.1 mg/dL (8.5-10.5); Carbon Dioxide 28 mmol/L (22-29); Chloride 104 mmol/L (98-107); Creatinine Clr Calc Pharmacy 148.4041; Glomerular Filtration Rate 132.2 mL/min (90-130); Glucose 85 mg/dL (65-115); Magnesium 2.2 mg/dL (1.7-2.3); Osmolality Calculated 292 mOsm/kg (285-295); Potassium 3.2 mmol/L (3.5-5.1); Sodium 141 mmol/L (136-145)
[2021-08-03] MEDS: sennosides-docusate Tablet 2 TAB PO ×2 (08:46→17:54)
[2021-08-03] MEDS: ascorbic acid 500 mg Tablet PO (08:46)
[2021-08-03] MEDS: zinc gluconate 50 mg Tablet PO (08:46)
[2021-08-03] MEDS: methylphenidate 10 mg Tablet PO (08:46)
[2021-08-03] MEDS: metoprolol tartrate 25 mg Tablet PO ×2 (08:46→21:51)
[2021-08-03] MEDS: cholecalciferol (vitamin D3) 1,000 unit Tablet 1000 UNIT PO (08:47)
[2021-08-03 12:30] LABS: Glucose Point of Care 108 mg/dL (70-110)
--- NOTE | 2021-08-03 12:47 | P.PN_ITS ---
Subjective Subjective: Interval history: Patient is saturating well on 12 L nasal cannula Patient is very happy with the progress endorsing improvement in her energy able to eat her diet Afebrile Nurse reported accidental dose of 4 units of subcutaneous NovoLog Blood glucose is above 100 no hypoglycemic events patient is tolerating her diet Did speak with her as well he was on FaceTime Medications: Reviewed: Yes Vitals/I&O/Wt Last Vital Signs Temp 97.5 F L 08/03/21 08:00 Pulse 94 08/03/21 09:20 Resp 18 08/03/21 09:09 BP 136/86 08/03/21 08:00 Pulse Ox 95 08/03/21 09:09 08/02/21 08/03/21 08/03/21 22:59 06:59 14:59 Intake Total 740 / 980 450 / 1430 280 / 280 Output Total 350 / 350 Balance 740 / 980 100 / 1080 280 / 280 Weight last 48 hrs Weight 83.461 kg Weight 82.129 kg Physical Exam Narrative: EXAM NARRATIVE: Patient sitting comfortably saturating well on 12 L nasal cannula Her mood energy looks better Bilateral breath sounds with mild rhonchi at the bases S1, S2 Abdomen soft Legs no edema No joint swelling No cellulitis Urinary Catheter Management^: Alcantara: Cath Placed During This Visit: yes Reason for Continuing Indwelling Catheter: Other Urinary Catheter Time of Insertion: 11:12 Data : 08/02/21 05:27 08/03/21 05:12 Micro: Microbiology 07/29/21 00:25 Blood Culture - Final Blood NO GROWTH AFTER 5 DAYS 07/28/21 13:00 Blood Culture - Final Blood NO GROWTH AFTER 5 DAYS CXR: I personally reviewed and interpreted this imaging study as follows: Other data: 07/28/21 07/28/21 07/29/21 08:56 15:38 03:40 ABG pH 7.52 H 7.51 H 7.45 ABG pCO2 33.6 L 33.0 L 28.9 L ABG pO2 49.8 L 65.8 L 129.0 H ABG HCO3 27.2 H 26.0 19.9 L ABG O2 Saturation ABG Base Excess 4.5 H 3.2 H -3.7 L 07/29/21 07/30/21 07/31/21 13:05 03:30 05:40 ABG pH 7.47 H 7.46 H 7.46 H ABG pCO2 35.5 36.6 37.5 ABG pO2 74.7 L 80.6 72.7 L ABG HCO3 25.7 26.1 H 26.3 H ABG O2 Saturation 96.1 ABG Base Excess 2.2 H 2.4 H 2.5 H 07/31/21 09:27 ABG pH 7.47 H ABG pCO2 39.6 ABG pO2 60.4 L ABG HCO3 28.8 H ABG O2 Saturation 91.7 ABG Base Excess 4.8 H A&P Assessment and plan (1) Fatigue: Status: Acute (2) ARDS (adult respiratory distress syndrome): Status: Acute (3) Elevated d-dimer: Status: Acute (4) Hypokalemia: Supplement with IV potassium Check magnesium Status: Acute (5) Pneumonia due to COVID-19 virus: Status: Acute (6) Acute respiratory failure: Status: Acute (7) Pulmonary embolism: Status: Acute Additional A&P Information Persistent hypoxia related to COVID-19 she has been weaned down from heated high flow to 12 L nasal cannula Endorse improvement in energy and fatigue with Ritalin Sinus tachycardia is improved with therapeutic dose of Lovenox and fluid bolus she received 2 dose of clonidine as well Patient is able to work with PT Advance her diet Patient encouraged for proning flutter valve out of bed to chair updated Hypokalemia: Repleted Magnesium 2.2 Acute pulmonary embolism started therapeutic dose of Lovenox yesterday 08/02 Continue multivitamins and zinc Wean off steroids Attestations Medical Necessity Statement*: Continue medical management Time Spent in Patient Care: 16 - 35 minutes Coding Level of Care Code Acute Needle Bar Molder for [facility] Fwd Diagnoses Fatigue R53.83 ARDS (adult respiratory distress syndrome) J80 Elevated d-dimer R79.89 Hypokalemia E87.6 Pneumonia due to COVID-19 virus U07.1; J12.82 Acute respiratory failure J96.00 Pulmonary embolism I26.99
[2021-08-03 13:01] LABS: Glucose Point of Care 107 mg/dL (70-110)
[2021-08-03] MEDS: potassium chloride ER 20 mEq Tablet 40 MEQ PO (14:16)
[2021-08-03 17:34] LABS: Glucose Point of Care 107 mg/dL (70-110)
[2021-08-04] VITALS (16 sets, daily range): BP systolic 96–128; BP diastolic 68–88; PULSE 76–102; RESP 16–18; TEMP 36.4–36.8; O2SAT 93–98
[2021-08-04] MEDS: ipratropium-albuterol 3 mL Neb INHALATION ×4 (02:58→20:12)
[2021-08-04] MEDS: enoxaparin 80 mg/0.8 mL Syringe SUBCUT ×2 (03:13→16:38)
[2021-08-04 05:38] LABS: Anion Gap 11.6 (5-19); Blood Urea Nitrogen 10 mg/dL (6-20); C Reactive Protein 4.3 mg/L (0.0-4.9); Calcium 8.6 mg/dL (8.5-10.5); Carbon Dioxide 29 mmol/L (22-29); Chloride 104 mmol/L (98-107); Creatinine Clr Calc Pharmacy 148.4041; Glomerular Filtration Rate 132.2 mL/min (90-130); Glucose 103 mg/dL (65-115); Osmolality Calculated 291 mOsm/kg (285-295); Potassium 3.6 mmol/L (3.5-5.1); Sodium 141 mmol/L (136-145)
[2021-08-04] MEDS: zinc gluconate 50 mg Tablet PO (08:53)
[2021-08-04] MEDS: sennosides-docusate Tablet 2 TAB PO (08:53)
[2021-08-04] MEDS: ascorbic acid 500 mg Tablet PO (08:53)
[2021-08-04] MEDS: cholecalciferol (vitamin D3) 1,000 unit Tablet 1000 UNIT PO (08:53)
[2021-08-04] MEDS: methylphenidate 10 mg Tablet PO (08:53)
--- NOTE | 2021-08-04 10:57 | PM.PN ---
Subjective Subjective: Interval history: Patient is on 5 L nasal cannula stating that she was able to get up and use bedside commode without any recreational assistant however when RT did home O2 evaluation she was saturating 90% on 5 L and became tachycardic she is eager to go home Stating improvement in her energy, we did talk about hoarseness of voice and outpatient follow-up with ENT she does have good cough and gag reflex Does not have any audible stridor or squek Vitals/I&O/Wt Last Vital Signs Temp 97.5 F L 08/04/21 07:44 Pulse 101 H 08/04/21 08:46 Resp 16 08/04/21 08:46 BP 96/68 08/04/21 07:44 Pulse Ox 93 08/04/21 08:46 08/03/21 08/04/21 08/04/21 22:59 06:59 14:59 Intake Total 240 / 520 600 / 1120 Output Total 800 / 800 900 / 1700 Balance -560 / -280 -300 / -580 Weight last 48 hrs Weight 81.057 kg Weight 83.461 kg Physical Exam Narrative: EXAM NARRATIVE: Patient was sitting in her bed comfortably saturating well on 5 L nasal cannula endorsing improvement in her energy She did try to get out of bed saturating 90% on 5 L tachycardia Bilateral breath sounds rhonchi at the bases Abdomen soft Lower extremity no edema EOMI, PERRLA No neurological deficits Urinary Catheter Management^: Alcantara: Cath Placed During This Visit: yes Reason for Continuing Indwelling Catheter: Other Urinary Catheter Time of Insertion: 11:12 Data : 08/02/21 05:27 08/04/21 04:45 A&P Assessment and plan (1) Pulmonary embolism: Status: Acute (2) Fatigue: Status: Acute (3) ARDS (adult respiratory distress syndrome): Status: Acute (4) Elevated d-dimer: Status: Acute (5) Hypokalemia: Status: Acute (6) Pneumonia due to COVID-19 virus: Status: Acute (7) Acute respiratory failure: Status: Acute Additional A&P Information COVID-19 related acute hypoxia Currently doing well on 5 L nasal cannula, has been weaned down from heated high flow Able to keep her O2 saturation 90% on ambulation Become tachycardic with mild exertion Would like to keep her here 1 more day for PT and optimization For fatigue and lethargy Ritalin seems to be helping her Encouraged to do daily proning and PT Acute pulmonary embolism related to COVID-19 She will go home with Lyssaleo, currently on Lovenox therapeutic regimen Hypokalemia: Repleted Dysphagia secondary to intubation, likely vocal cord edema Anticipating improvement with Decadron She will need outpatient ENT evaluation for now has good gag reflex and cough, I do not hear nasal tone to her voice however it is weak tone Advance diet, speech therapy on daily basis Anticipating discharge tomorrow if she is feeling better and tachycardia improved Full code Her is also sick with COVID-19, he got sick at the same time patient can get vaccination after 90 days of infection Attestations Medical Necessity Statement*: Continue medical management Time Spent in Patient Care: 16 - 35 minutes Coding Level of Care Code Acute Wrapper Stemmer Operator for Chg Fwd Diagnoses Pulmonary embolism I26.99 Fatigue R53.83 ARDS (adult respiratory distress syndrome) J80 Elevated d-dimer R79.89 Hypokalemia E87.6 Pneumonia due to COVID-19 virus U07.1; J12.82 Acute respiratory failure J96.00
--- NOTE | 2021-08-04 15:30 | PC.CHAP ---
Pastoral Care Encounter/Spiritual Assessment Type of Contact [] Declined dry heat room attendant visit [] Patient/Family/Request visit [] Outpatient visit [xx] Follow-up visit [] Physician referral [] Code/Alert [xx] Routine visit [] Staff referral [] Actively dying [] Patient sleeping [] Family support [] [] Out of room [] Palliative care [] [] Receiving care in room [] Pre-surgical visit [] Trauma [xx] Long length of stay [] ICU visit [xx] Other: Isolation continues Relational/Emotional Strength [] Patient feels connected with others/family/visitors/staff [] Distress [] Loneliness/isolation [] Abandonment Spirituality of Patient [] Person of Radha [] Attends Moravian of their Radha [] Believes in Prayer [] Reads Bible or Buddhism materials [] There are Spiritual issues to be addressed Routing Clerk Interventions [] Prayer [] Active listening [] Non-anxious presence [] Spiritual/emotional support [] Crisis/trauma care [] Spiritual counseling [] Bereavement support [] Provided bereavement packet [] Provided Bible/devotional materials [] Provided toy/stuffed animal, coloring book to patient or family member [] Provided Communion [] Anointing/[place] [] Salvation [] Completed spiritual assessment [] Other: Impact on Illness or Injury [] Angry [] Fearful [] Anxious [] Often cries [] Exhaustion [] Unable to work [] Unable to attend church [] Unable to walk/stand [] Unable to read [] Unable to drive [] Unable to eat/drink [] Unable to sleep [] Unable to be with family [] Patient intubated [] Other: Summary Time spent with patient
[2021-08-04] MEDS: metoprolol tartrate 25 mg Tablet PO (20:45)
[2021-08-05] VITALS (10 sets, daily range): BP systolic 101–111; BP diastolic 60–77; PULSE 73–112; RESP 15–20; TEMP 36.6–37; O2SAT 85–96
[2021-08-05] MEDS: enoxaparin 80 mg/0.8 mL Syringe SUBCUT (02:13)
[2021-08-05] MEDS: ipratropium-albuterol 3 mL Neb INHALATION ×2 (02:52→08:21)
[2021-08-05 06:06] LABS: Anion Gap 11.6 (5-19); Blood Urea Nitrogen 8 mg/dL (6-20); Calcium 8.7 mg/dL (8.5-10.5); Carbon Dioxide 30 mmol/L (22-29); Chloride 100 mmol/L (98-107); Glomerular Filtration Rate 171.1 mL/min (90-130); Glucose 81 mg/dL (65-115); Osmolality Calculated 283 mOsm/kg (285-295); Potassium 3.6 mmol/L (3.5-5.1); Sodium 138 mmol/L (136-145)
[2021-08-05] MEDS: zinc gluconate 50 mg Tablet PO (08:42)
[2021-08-05] MEDS: ascorbic acid 500 mg Tablet PO (08:42)
[2021-08-05] MEDS: cholecalciferol (vitamin D3) 1,000 unit Tablet 1000 UNIT PO (08:42)
[2021-08-05] MEDS: metoprolol tartrate 25 mg Tablet PO (08:43)
[2021-08-05] MEDS: apixaban 5 mg Tablet 10 MG PO (08:43)
[2021-08-05] MEDS: sennosides-docusate Tablet 2 TAB PO (08:43)
[2021-08-05] MEDS: methylphenidate 10 mg Tablet PO (08:43)
--- NOTE | 2021-08-05 11:10 | PM.DCS ---
Discharge Providers Date of Admission: 07/28/21 09:15 Date of Discharge: August 05, 2021 Attending Provider at Admission: Duglas Tabor MD Attending Provider at Discharge: Shyanne Ruiz MD Diagnoses at Discharge Discharge Diagnosis (1) Pulmonary embolism: Status: Acute (2) Fatigue: Status: Acute (3) ARDS (adult respiratory distress syndrome): Status: Acute (4) Pneumonia due to COVID-19 virus: Status: Acute (5) Acute respiratory failure: Status: Resolved Reason for Visit Reason for Visit: Fever, Cough, SOB Hospital Course Hospital Course 45-year-old female who presented to the emergency department with chief complaint of shortness of breath, she was intubated because of increasing respiratory distress, she underwent 2 proning cycles which improved her oxygenation, she was successfully extubated to heated high flow and was transitioned down to nasal cannula within 24 hrs, she was transferred to [facility] where her diet was advanced gradually she did experience dysphagia after extubation attributed to loss of taste and smell. She remained tachycardic that necessitated CTA chest which ruled in PE she was started on full dose anticoagulation. Her CTA chest on admission was negative for PE. There was no right heart strain. She finished remdesivir, did receive Actemra on day 1, finished Decadron regimen. For her fatigue and lethargy Ritalin trial was successful. At the time of discharge she qualified for 5L NC oxygen. She was discharged on Eliquis for her PE. Patient was counseled to get COVID-19 vaccination 90 days after her infection. She was given ENT follow-up for her hoarseness of voice. Physical Exam Narrative: EXAM NARRATIVE: Patient was sitting in her bed comfortably saturating well on 5 L nasal cannula Bilateral breath sounds rhonchi at the bases Abdomen soft Lower extremity no edema EOMI, PERRLA No neurological deficits Urinary Catheter Management^: Alcant[place]: Cath Placed During This Visit: yes, but has since been removed by the nurse Reason for Continuing Indwelling Catheter: Not indwelling catheter Urinary Catheter Time of Insertion: 11:12 Date Urinary Catheter Removed: 08/04/21 Time Urinary Catheter Discontinued: 18:30 Discharge Data Data Completed and Pending: Completed Studies During Hospitalization Category Date Time Status CT angio chest PE protcl 00782 Rout ine Cat Scan 08/02/21 08:15 Completed CTA chest [CT ang io chest PE protcl [id number]] Stat Cat Scan 07/28/21 10:23 Completed CXRP [XR chest 1V portable [id number]] S tat Exams 07/29/21 22:08 Completed XR chest 1V art ble [id number] Routine Exams 07/28/21 Completed XR chest 1V art ble [id number] Stat Exams 07/28/21 08:55 Completed XR chest 1V art ble [id number] Stat Exams 07/28/21 10:41 [place] [id number] Routin e Ultrasound 07/30/21 13:38 Completed Labs from last 24 hours 08/05/21 04:35 Sodium 138 Potassium 3.6 Chloride 100 Carbon Dioxide 30 H Anion Gap 11.6 BUN 8 Creatinine 0.4 L GFR Calculation 171.1 H Glucose 81 Calculated Osmolal ity 283 L Calcium 8.7 Vitals: Last Vital Signs Temp 97.8 F 08/05/21 07:54 Pulse 112 H 08/05/21 08:21 Resp 20 H 08/05/21 08:21 BP 109/76 08/05/21 07:54 Pulse Ox 85 L 08/05/21 08:28 Discharge Plan Discharge Patient Disposition: Home Condition: Stable Prescriptions: New Eliquis 5 mg Tablet 5 mg PO BID@0900,2100 Qty: 60 RF: 3 Ventolin HFA 90 mcg/actuation HFA aerosol inhaler 2 inh inhalation Q4H PRN (Reason: shortness of breath or wheezing) Qty: 6.7 RF: 0 metoprolol tartrate 25 mg tablet 25 mg PO BID PRN (Reason: tachycardia) Qty: 6 RF: 0 Continued Tylenol Extra Strength 500 mg Tablet 1,000 mg PO Q4H PRN (Reason: Pain) RF: 0 Discontinued azithromycin 250 mg tablet See Rx Instructions .ROUTE .COMPLEX RF: 0 dexamethasone 6 mg tablet 6 mg PO DAILY RF: 0 Vitamin C 1 tab PO DAILY RF: 0 zinc 1 cap PO DAILY RF: 0 Discharge Orders: Discharge Order (Routine); Ordered 08/05/21 Ordered By: Shyanne Ruiz Other Ambulatory Orders: DME: Oxygen (Order) Location: None Selected Ordered By: Shyanne Ruiz Referrals: Kimani Giron MD [Physician] - 09/04/21 1:00 pm (PLEASE CALL [phone] ON SATURDAY TO SET UP AN APPOINTMENT WITH DR. GIRON. Hoarseness of voice status post extubation) Discharge Diet: Regular Discharge Activity: Increase activity as tolerated, Limit activity as instructed and Oxygen as instructed Patient Instructions: Metoprolol (By mouth), Apixaban (By mouth), Pulmonary Embolism (DC), Viral Pneumonia (DC), Acute Respiratory Distress Syndrome (DC), Hypokalemia (DC), Chronic Fatigue Syndrome (DC), Opioid Safety Activity Restrictions/Additional Instructions: Please follow up with Primary Care Doctor in 1-2 weeks. Discharge Attestations Time Spent in Discharge Care*: less than 30 min Quality Metrics Clinical Quality Measures During this hospital stay, did patient experience: None Coding Level of Care Code Acute Chg FW DC note Diagnoses Pulmonary embolism I26.99 Fatigue R53.83 ARDS (adult respiratory distress syndrome) J80 Pneumonia due to COVID-19 virus U07.1; J12.82 Acute respiratory failure J96.00
--- NOTE | 2021-08-05 14:28 | PC.NURSE ---
Discharge Note Patient discharged to home via personal vehicle accompanied by . Discharge instructions reviewed with patient and/or risk control field representative. Mobile pharmacy medications and/or prescriptions provided. Belongings/home medications returned.
--- NOTE | 2021-08-08 11:35 | PC.SOCIAL ---
blog writer called patient multiple times yesterday, phone goes straight to voicemail, message left. attempted to call today, phone continues to go to voicemail.
== END 2021-08-05 14:29 | disposition home or self-care (01) | DRG 208 ==
LOC: ER 08:53 → ICU 09:30 → MEDSURG 07-31 16:18
PROVIDERS: Internal Medicine; Admitting Provider Internal Medicine; Emergency Provider Family Medicine; Visit Provider Internal Medicine
DX: U07.1 COVID-19 (principal); J12.82 Pneumonia due to coronavirus disease 2019; I26.94 Multiple subsegmental thrombotic pulmonary emboli without acute cor pulmonale; E87.6 Hypokalemia; K59.00 Constipation, unspecified; E78.5 Hyperlipidemia, unspecified
CPT/HCPCS: 31500; 36415; 36416; 36556; 36600; 51702; 71045; 71275; 80048; 80051; 80053; 81001; 82330; 82550; 82803; 82805; 82962; 83605; 83735; 84100; 84145; 84443; 84484; 85025; 85378; 86140; 86403; 87040; 87070; 87205; 87641; 92526; 92610; 93005; 93970; 94002; 94003; 94640; 94664; 94799; 96365; 96367; 96372; 96375; 97110; 97116; 97162; 97530; 99291; 99292; C1751; J0330; J0610; J1100; J1170; J1650; J1940; J1956; J2060; J2250; J2704; J3010; J3262; J3480; J3490; J7030; J7040; Q9967